=== PATIENT | male | born 1995 | race Caucasian/White ===

== ENCOUNTER 2023-07-29 16:43 | Emergency (ER) | payer OTHER ==
--- NOTE | 2023-07-29 18:22 | ED ---
General Adult HPI - General Source: patient, family Mode of arrival: ambulatory Limitations: no limitations <Patrick Wright - Last Filed: 07/29/23 18:25> - General Source: RN notes reviewed <Glenda Dorman - Last Filed: 07/30/23 00:05> - General Chief complaint: Psychiatric Symptoms Stated complaint: mental health Time Seen by Provider: 07/29/23 18:25 - History of Present Illness Initial comments: 28-year-old male presenting to the ED with a chief complaint of withdrawal. Patient states he has not had his Suboxone, Klonopin, Gabapentin, Abilify, or Staterra for the past 3 days. Now admits to anxiety. (Patrick Wright) 28-year-old with a past medical history significant for polysubstance abuse presents the emergency department with a chief complaint of medication refill. Patient reports that he was recently moved here from [place]. Reports that he was unable to fill his prescriptions before moving. He is requesting refills on Suboxone and Klonopin. He reports feeling restless and having some m ild nausea. He has not had his medication 3 days. Patient verbalized that he would like assistance with withdrawal night homicidal or suicidal ideation. Denies visual or auditory hallucinations. (Glenda Dorman) - Related Data Previous Rx's Medication Instructions Recorded clonazePAM 1 mg PO TID 3 Days #9 tab 07/29/23 Allergies Allergy/AdvReac Type Severity Reaction Status Date / Time No Known Allergies Allergy Verified 07/29/23 16:54 Review of Systems ROS Other: All systems not noted in ROS Statement are negative. <Patrick Wright - Last Filed: 07/29/23 18:25> ROS Other: All systems not noted in ROS Statement are negative. <Glenda Dorman - Last Filed: 07/30/23 00:05> ROS Statement: Those systems with pertinent positive or pertinent negative responses have been documented in the HPI. Past Medical History Additional Past Medical History / Comment(s): hep c Past Surgical History: No Surgical Hx Reported Past Psychological History: Anxiety, Bipolar, Depression, Panic Disorder Smoking Status: Current every day smoker Past Alcohol Use History: Occasional Past Drug Use History: Heroin, Opiates <Patrick Wright - Last Filed: 07/29/23 18:25> General Exam Limitations: no limitations General appearance: alert Neck exam: Present: normal inspection Extremities exam: Present: normal inspection Back exam: Present: normal inspection Neurological exam: Present: alert <Patrick Wright - Last Filed: 07/29/23 18:25> <Glenda Dorman - Last Filed: 07/30/23 00:05> - General Exam Comments Initial Comments: General: Alert, in no acute distress Head: atraumatic normocephalic. Eyes PERRL, EOMI intact, mucous membranes moist Respiratory: Lungs clear to auscultation bilaterally Cardiovascular: Heart rate regular rate and rhythm Abdominal: Soft without guarding or rebound Extremities: Normal inspection with full range of motion and normal capillary refill Neuroogic: alert and oriented 3, CN II-XII intact, able to ambulate with steady gait Skin: warm dry and intact with normal color (Glenda Dorman) Course Vital Signs 07/29/23 07/29/23 16:51 22:54 Temperature 97 F L 97.9 F Pulse Rate 63 80 Respiratory 16 18 Rate Blood Pressure 150/85 162/81 O2 Sat by Pulse 99 100 Oximetry Medical Decision Making <Patrick Wright - Last Filed: 07/29/23 18:25> <Glenda Dorman - Last Filed: 07/30/23 00:05> - Medical Decision Making Quicknote portion performed. Signed Patrick Wright PA-C (Patrick Wright) Was pt. sent in by a medical professional or institution ([facility] [employer], GLOBAL RECRUITER, urgent care, hospital, or fpc...) When possible be specific @ -[No] Did you speak to anyone other than the patient for history (EMS, parent, family, police, friend...)? What history was obtained from this source @ -Mother Did you review nursing and triage notes (agree or disagree)? Why? @ -[I reviewed and agree with nursing and triage notes] Were old charts reviewed (outside hosp., previous admission, EMS record, old EKG, old radiological studies, urgent care reports/EKG's, fpc records)? Report findings @ -[No old charts were reviewed] Differential Diagnosis (chest pain, altered mental status, abdominal pain women, abdominal pain men, vaginal bleeding, weakness, fever, dyspnea, syncope, headache, dizziness, GI bleed, back pain, seizure, CVA, palpatations, mental health, musculoskeletal)? @ -[not applicable] EKG interpreted by me (3pts min.). @ -[As above] X-rays interpreted by me (1pt min.). @ -[None done] CT interpreted by me (1pt min.). @ -[None done] U/S interpreted by me (1pt. min.). @ -[None done] What testing was considered but not performed or refused? (CT, X-rays, U/S, labs )? Why? @ -[None] What meds were considered but not given or refused? Why? @ -[None] Did you discuss the management of the patient with other professionals (professionals i.e. , PA, GLOBAL RECRUITER, lab, RT, psych nurse, social media campaign manager, moving picture producer, teacher, court collections officer, director of casework department)? Give summary @ -[No] Was smoking cessation discussed for >3mins.? @ -[No] Was critical care preformed (if so, how long)? @ -[No] Were there social determinants of health that impacted care today? How? (Homelessness, low income, unemployed, alcoholism, drug addiction, transportation, low edu. Level, literacy, decrease access to med. care, fci, rehab)? @ -[No] Was there de-escalation of care discussed even if they declined (Discuss DNR or withdrawal of care, Hospice)? DNR status @ -[No] What co-morbidities impacted this encounter? (DM, HTN, Smoking, COPD, CAD, Cancer, CVA, ARF, Chemo, Hep., AIDS, mental health diagnosis, sleep apnea, morbid obesity)? @ -[None] Was patient admitted / discharged? Hospital course, mention meds given and route, prescriptions, significant lab abnormalities, going to OR and other pert inent info. @ -Discharged. This is a 19-year-old male who presents the emergency department with medication refill. Patient had a thorough history and physical exam performed. Patient appears unkept. Vital signs are stable. Heart rate regular rate and rhythm, lungs clear to auscultation bilaterally abdomen soft and nontender. Patient given Klonopin here. Educated that provider unable to provide Suboxone. Patient given Rx for Klonopin. Recommend close follow-up with PCP. Charged in stable condition. Case discussed with Dr. Booker, P who agrees with plan of care Undiagnosed new problem with uncertain prognosis? @ -[No] Drug Therapy requiring intensive monitoring for toxicity (Heparin, Nitro, Ins ulin, Cardizem)? @ -[No] Were any procedures done? @ -[No] Diagnosis/symptom? @ -Medication Re-fill - Anxiety Acute, or Chronic, or Acute on Chronic? @ -Acute Uncomplicated (without systemic symptoms) or Complicated (systemic symptoms)? @ Uncomplicated Side effects of treatment? @ -[No] Exacerbation, Progression, or Severe Exacerbation? @ -[No] Poses a threat to life or bodily function? How? (Chest pain, [place], [place], pneumonia, PE, COPD, DKA, ARF, appy, cholecystitis, CVA, Diverticulitis, Homicidal, Suicidal, threat to staff... and all critical care pts) @ -Low likelihood (Glenda Dorman) Disposition <Patrick Wright - Last Filed: 07/29/23 18:25> Is patient prescribed a controlled substance at d/c from ED?: No Time of Disposition: 23:30 <Glenda Dorman - Last Filed: 07/30/23 00:05> Clinical Impression: Acute anxiety, Medication refill Disposition: HOME SELF-CARE Condition: Stable Additional Instructions: Take medication as prescribed Establish care with primary care physician Please return if worsening symptoms develop Prescriptions: clonazePAM 1 mg PO TID 3 Days #9 tab Referrals: None,Stated [Primary Care Provider] - 1-2 days Forms: Area PCPs
[2023-07-29] MEDS ORDERED: clonazePAM 0.5 MG TAB PO STA (23:23)
[2023-07-29 23:33] VITALS: RESP 18
[2023-07-30 00:56] VITALS: BP 164/82; PULSE 82; TEMP 98.1
== END 2023-07-30 00:07 | disposition home or self-care (01) ==
LOC: EC 16:43
DX: F41.9 Anxiety disorder, unspecified (principal); F11.90 Opioid use, unspecified, uncomplicated; Z76.0 Encounter for issue of repeat prescription
CPT/HCPCS: 99284

== ENCOUNTER 2023-08-30 13:29 | Emergency (ER) | payer OTHER ==
[2023-08-30] MEDS ORDERED: LORazepam 1 MG TAB PO STA ×2 (15:04→16:12)
[2023-08-30 15:37] LABS: Amphetamine Screen,Urine Not Detected (NotDetected); Barbiturate Screen,Urine Not Detected (NotDetected); Benzodiazepines Screen,Urine Not Detected (NotDetected); Cocaine Screen,Urine Not Detected (NotDetected); Methadone Screen, Urine Not Detected (NotDetected); Opiate Screen,Urine Not Detected (NotDetected); Oxycodone Screen, Urine Not Detected (NotDetected); Phencyclidine Screen,Urine Not Detected (NotDetected); Tricyclic Antidepressant,Urine Not Detected (NotDetected); Urn Cannabinoid Scrn Not Detected (NotDetected)
[2023-08-30 16:01] VITALS: BP 121/82; PULSE 76; RESP 18; TEMP 97.8
--- NOTE | 2023-08-30 16:06 | ED ---
General Adult HPI - General Chief complaint: Psychiatric Symptoms Stated complaint: mental health Time Seen by Provider: 08/30/23 14:34 Source: patient, RN notes reviewed, old records reviewed Mode of arrival: ambulatory Limitations: no limitations - History of Present Illness Initial comments: Patient is a 28-year-old male who presents from [facility] to emergency Department complaining of increased anxiety and nonspecific suicidal ideations. Currently denying suicidal ideations. States [facility] recommended he come to the emergency department for evaluation. Denies homicidal ideations, attempts, plans. Denies any current suicidal ideations, attempts complaints. Denies any visual or auditory hallucinations. No other acute complaints at this time. Klonopin 1 mg twice a day however patient has been off of that as he ran out of his prescriptions. - Related Data Previous Rx's Medication Instructions Recorded clonazePAM 1 mg PO TID 3 Days #9 tab 07/29/23 clonazePAM [KlonoPIN] 1 mg PO BID 3 Days #6 tablet 08/30/23 Allergies Allergy/AdvReac Type Severity Reaction Status Date / Time No Known Allergies Allergy Verified 08/30/23 14:28 Review of Systems ROS Statement: Those systems with pertinent positive or pertinent negative responses have been documented in the HPI. Review of Systems: CONST: Denies fever EYES: Denies blurry vision ENT: Denies nasal congestion C/V: Denies Chest pain RESP: Denies shortness of breath GI: Denies abdominal pain : Denies dysuria SKIN: Denies rash. MSK: Denies joint pain. NEURO: Denies headache ROS Other: All systems not noted in ROS Statement are negative. Past Medical History Additional Past Medical History / Comment(s): hep c Past Surgical History: No Surgical Hx Reported Past Psychological History: Anxiety, Bipolar, Depression, Panic Disorder Smoking Status: Current every day smoker Past Alcohol Use History: Occasional Past Drug Use History: Heroin, Opiates General Exam - General Exam Comments Initial Comments: General: Appears in no acute distress. HEAD: Normal with no signs of head trauma. EYES: PERRLA, EOMI, ENT: Hearing grossly intact, normal oropharynx. RESPIRATORY: Clear breath sounds bilaterally. No wheezes, rales, or rhonchi. C/V: Regular rate and rhythm. S1 and S2 auscultated,peripheral pulses 2+ and intact throughout ABD: Abd is soft, nontender, nondistended EXT: Normal range of motion, no obvious deformity SKIN: No rashes or lesions observed on exposed skin. NEURO: Alert and oriented x 4. Limitations: no limitations Course Vital Signs 08/30/23 08/30/23 14:25 15:52 Temperature 97.9 F 97.8 F Pulse Rate 83 76 Respiratory 16 18 Rate Blood Pressure 138/93 121/82 O2 Sat by Pulse 97 98 Oximetry Medical Decision Making - Medical Decision Making Was pt. sent in by a medical professional or institution (, PA, TELECOM MANAGER, urgent care, hospital, or care home...) When possible be specific @ -No Did you speak to anyone other than the patient for history (EMS, parent, family, police, friend...)? What history was obtained from this source @ -No Did you review nursing and triage notes (agree or disagree)? Why? @ -I reviewed and agree with nursing and triage notes Were old charts reviewed (outside hosp., previous admission, EMS record, old EKG, old radiological studies, urgent care reports/EKG's, care home records)? Report findings @ -Old charts reviewed Differential Diagnosis (chest pain, altered mental status, abdominal pain women, abdominal pain men, vaginal bleeding, weakness, fever, dyspnea, syncope, headache, dizziness, GI bleed, back pain, seizure, CVA, palpatations, mental health, musculoskeletal)? @ -Differential Mental Health Depression, anxiety, bipolar, psychosis, schizophrenia, borderline personality, situational depression, adjustment disorder, behavioral disorder, brain tumor, malingering, substance abuse, encephalopathy, medication reaction, dementia, hypothyroidism, degenerative neurologic disorder, lupus.... This is not meant to be all-inclusive list EKG interpreted by me (3pts min.). @ -None done X-rays interpreted by me (1pt min.). @ -None done CT interpreted by me (1pt min.). @ -None done U/S interpreted by me (1pt. min.). @ -None done What testing was considered but not performed or refused? (CT, X-rays, U/S, labs)? Why? @ -None What meds were considered but not given or refused? Why? @ -None Did you discuss the management of the patient with other professionals (professionals i.e. , NANNETTE, TELECOM MANAGER, lab, RT, psych nurse, medical social consultant, contract recruiter, teacher, defence force senior officer, shoe caser)? Give summary @ -EPS notified of the consult. They evaluated the patient and the patient is stable for discharge. I believe this is reasonable. Patient will follow up with [facility]. Was smoking cessation discussed for >3mins.? @ -No Was critical care preformed (if so, how long)? @ -No Were there social determinants of health that impacted care today? How? (Homelessness, low income, unemployed, alcoholism, drug addiction, transportation, low edu. Level, literacy, decrease access to med. care, custodial, rehab)? @ -No Was there de-escalation of care discussed even if they declined (Discuss DNR or withdrawal of care, Hospice)? DNR status @ -No What co-morbidities impacted this encounter? (DM, HTN, Smoking, COPD, CAD, Cancer, CVA, ARF, Chemo, Hep., AIDS, mental health diagnosis, sleep apnea, morbid obesity)? @ -None Was patient admitted / discharged? Hospital course, mention meds given and route, prescriptions, significant lab abnormalities, going to OR and other pertinent info. @ -Based on patient's presentation physical exam, presents for mental health evaluation. Is also asking for refill on his Klonopin prescription. Has been without it for multiple beats. Endorses intermittent suicidal ideations but currently is having none. Also endorses anxiety. Patient was placed in agreement scrubs. UDS is pending. BAT is 0. Vital signs within accepted limits. Appears anxious and he will be given a dose of Ativan. Patient is medically cleared for evaluation by psychiatry. Disposition pending psychiatric evaluation. EPS notified of the consult. EPS evaluated the patient and after discussion with psychiatry determined he does meet criteria for discharge home. Is not meet inpatient psychiatric criteria. I believe this is reasonable. He'll be discharged home with a 3 day prescription of his normal Klonopin medication. He has outpatient follow-up with [facility]. I will provide the patient with a prescription for 3 days of Klonopin. I instructed the patient to follow up with their PCP in the next 1-3 days. I explained that the patient should return to the emergency department if they experience any worsening symptoms. Strict return precautions were discussed with the patient. The patient expressed understanding of these instructions. I answered all questions that the patient had. The patient was discharged home in good condition with their prescriptions and follow up information. Undiagnosed new problem with uncertain prognosis? @ -No Drug Therapy requiring intensive monitoring for toxicity (Heparin, Nitro, Insulin, Cardizem)? @ -No Were any procedures done? @ -No Diagnosis/symptom? @ -Anxiety, encounter for psychiatric evaluation Acute, or Chronic, or Acute on Chronic? @ -Acute Uncomplicated (without systemic symptoms) or Complicated (systemic symptoms)? @ -Uncomplicated Side effects of treatment? @ -No Exacerbation, Progression, or Severe Exacerbation? @ -No Poses a threat to life or bodily function? How? (Chest pain, [place], [place], pneumonia, PE, COPD, DKA, ARF, appy, cholecystitis, CVA, Diverticulitis, Homicidal, Suicidal, threat to staff... and all critical care pts) @ -No - Lab Data Lab Results 08/30/23 Range/Units 15:14 Urine Opiates Screen Not Detected (NotDetected) Ur Oxycodone Screen Not Detected (NotDetected) Urine Methadone Screen Not Detected (NotDetected) Ur Barbiturates Screen Not Detected (NotDetected) U Tricyclic Antidepress Not Detected (NotDetected) Ur Phencyclidine Scrn Not Detected (NotDetected) Ur Amphetamines Screen Not Detected (NotDetected) U Methamphetamines Scrn Not Detected (NotDetected) U Benzodiazepines Scrn Not Detected (NotDetected) Urine Cocaine Screen Not Detected (NotDetected) U Marijuana (THC) Screen Not Detected (NotDetected) Disposition Clinical Impression: Acute anxiety Disposition: HOME SELF-CARE Condition: Good Prescriptions: clonazePAM [KlonoPIN] 1 mg PO BID 3 Days #6 tablet Is patient prescribed a controlled substance at d/c from ED?: Yes When asked, does pt state using other controlled substances?: No If prescribed controlled substance>3 days was MAPS reviewed?: Prescribed <3 Days Referrals: None,Stated [Primary Care Provider] - 1-2 days Time of Disposition: 16:00
== END 2023-08-30 16:17 | disposition home or self-care (01) ==
LOC: EC 13:29
DX: F41.9 Anxiety disorder, unspecified (principal); F17.200 Nicotine dependence, unspecified, uncomplicated; F15.90 Other stimulant use, unspecified, uncomplicated; F11.90 Opioid use, unspecified, uncomplicated
CPT/HCPCS: 80306; 82075; 99285

== ENCOUNTER 2023-09-02 17:23 | Emergency (ER) | payer OTHER ==
[2023-09-02] MEDS ORDERED: LORazepam 1 MG TAB PO STA (20:12)
--- NOTE | 2023-09-02 20:17 | ED ---
Psych HPI - General Chief Complaint: Psychiatric Symptoms Stated Complaint: Mental Health Time Seen by Provider: 09/02/23 18:02 Source: patient, RN notes reviewed, old records reviewed Mode of arrival: ambulatory Limitations: no limitations - History of Present Illness Initial Comments: This is a 28-year-old male to the emergency department for evaluation today. Patient presents today for evaluation regards to psychiatric illness. Patient states is out of his medication currently homeless his been running out of his medications with multiple recent ER visits for similar complaints. It to stress of Situation is really stressing him out causing significant anxiety MD Complaint: feels depressed, altered mental status -: days(s) Associated Psychiatric Symptoms: depression, suicidal ideation History of same: Yes Quality: constant Improves With: none Context: not taking psychiatric medications, significant life stressor Associated Symptoms: denies other symptoms Treatments Prior to Arrival: placed on mental health hold If Self Harm: admits thoughts of self harm - Related Data Previous Rx's Medication Instructions Recorded clonazePAM [KlonoPIN] 1 mg PO TID 3 Days #9 tab 09/10/23 Allergies Allergy/AdvReac Type Severity Reaction Status Date / Time No Known Allergies Allergy Verified 09/10/23 20:11 Review of Systems ROS Statement: Those systems with pertinent positive or pertinent negative responses have been documented in the HPI. ROS Other: All systems not noted in ROS Statement are negative. Past Medical History Additional Past Medical History / Comment(s): hep c Past Surgical History: No Surgical Hx Reported Past Psychological History: Anxiety, Bipolar, Depression, Panic Disorder Smoking Status: Current every day smoker Past Alcohol Use History: Occasional Past Drug Use History: Heroin, Opiates General Exam Limitations: no limitations General appearance: alert, in no apparent distress Head exam: Present: atraumatic, normocephalic, normal inspection Eye exam: Present: normal appearance, PERRL, EOMI. Absent: scleral icterus, conjunctival injection, periorbital swelling ENT exam: Present: normal exam, mucous membranes moist Neck exam: Present: normal inspection. Absent: tenderness, meningismus, lymphadenopathy Respiratory exam: Present: normal lung sounds bilaterally. Absent: respiratory distress, wheezes, rales, rhonchi, stridor Cardiovascular Exam: Present: regular rate, normal rhythm, normal heart sounds. Absent: systolic murmur, diastolic murmur, rubs, gallop, clicks GI/Abdominal exam: Present: soft, normal bowel sounds. Absent: distended, tenderness, guarding, rebound, rigid Extremities exam: Present: normal inspection, full ROM, normal capillary refill. Absent: tenderness, pedal edema, joint swelling, calf tenderness Back exam: Present: normal inspection Neurological exam: Present: alert, oriented X3, CN II-XII intact Psychiatric exam: Present: normal affect, normal mood Skin exam: Present: warm, dry, intact, normal color. Absent: rash Course Vital Signs 09/02/23 09/02/23 17:44 20:34 Temperature 98.5 F 97.5 F L Pulse Rate 100 93 Respiratory 20 18 Rate Blood Pressure 136/92 119/81 O2 Sat by Pulse 98 100 Oximetry - Reevaluation(s) Reevaluation #1: Medical record is reviewed Reevaluation #2: Medical clear for psychiatric evaluation Medical Decision Making - Medical Decision Making 28 male to the Er for evaluation. Patient presents today for evaluation psychiatric illness and patient will be discharged home Disposition Clinical Impression: Acute anxiety, Adjustment reaction of adult life, Depression Disposition: HOME SELF-CARE Condition: Good Instructions (If sedation given, give patient instructions): Anxiety (ED) Is patient prescribed a controlled substance at d/c from ED?: No Referrals: None,Stated [Primary Care Provider] - 1-2 days
[2023-09-02 20:46] VITALS: BP 119/81; PULSE 93; RESP 18; TEMP 97.5
== END 2023-09-02 20:38 | disposition home or self-care (01) ==
LOC: EC 17:23
DX: F43.23 Adjustment disorder with mixed anxiety and depressed mood (principal); F17.200 Nicotine dependence, unspecified, uncomplicated; F11.90 Opioid use, unspecified, uncomplicated; Z59.00 Homelessness unspecified
CPT/HCPCS: 82075; 99284

== ENCOUNTER 2023-09-10 15:34 | Emergency (ER) | payer OTHER ==
--- NOTE | 2023-09-10 16:53 | ED ---
Psych HPI - General Chief Complaint: Psychiatric Symptoms Stated Complaint: mental health Time Seen by Provider: 09/10/23 16:52 Source: patient, RN notes reviewed, old records reviewed Mode of arrival: ambulatory Limitations: no limitations - History of Present Illness Initial Comments: This is a 28-year-old male for evaluation today. Patient presents to the ER today for evaluation of psychiatric illness. Patient is significantly anxious here in the ER and states that he needs his medication. Admits significant and persistent anxiety, patient's anxiety causes him worsening anxiety does need his medication and is currently homeless with multiple recent ER visits for similar symptoms MD Complaint: feels depressed, altered mental status, other (Severe anxiety) -: unknown Associated Psychiatric Symptoms: none History of same: Yes Quality: constant Improves With: none Worsens With: none Treatments Prior to Arrival: placed on mental health hold If Self Harm: admits thoughts of self harm - Related Data Previous Rx's Medication Instructions Recorded clonazePAM [KlonoPIN] 1 mg PO TID 3 Days #9 tab 09/10/23 Allergies Allergy/AdvReac Type Severity Reaction Status Date / Time No Known Allergies Allergy Verified 09/10/23 20:11 Review of Systems ROS Statement: Those systems with pertinent positive or pertinent negative responses have been documented in the HPI. ROS Other: All systems not noted in ROS Statement are negative. Past Medical History Additional Past Medical History / Comment(s): hep c Past Surgical History: No Surgical Hx Reported Past Psychological History: Anxiety, Bipolar, Depression, Panic Disorder Smoking Status: Current every day smoker Past Alcohol Use History: Occasional Past Drug Use History: Heroin, Opiates General Exam Limitations: no limitations General appearance: alert, in no apparent distress Head exam: Present: atraumatic, normocephalic, normal inspection Eye exam: Present: normal appearance, PERRL, EOMI. Absent: scleral icterus, conjunctival injection, periorbital swelling ENT exam: Present: normal exam, mucous membranes moist Neck exam: Present: normal inspection. Absent: tenderness, meningismus, lymphadenopathy Respiratory exam: Present: normal lung sounds bilaterally. Absent: respiratory distress, wheezes, rales, rhonchi, stridor Cardiovascular Exam: Present: regular rate, normal rhythm, normal heart sounds. Absent: systolic murmur, diastolic murmur, rubs, gallop, clicks GI/Abdominal exam: Present: soft, normal bowel sounds. Absent: distended, tenderness, guarding, rebound, rigid Extremities exam: Present: normal inspection, full ROM, normal capillary refill. Absent: tenderness, pedal edema, joint swelling, calf tenderness Back exam: Present: normal inspection Neurological exam: Present: alert, oriented X3, CN II-XII intact Psychiatric exam: Present: normal affect, normal mood Skin exam: Present: warm, dry, intact, normal color. Absent: rash Course Vital Signs 09/10/23 09/10/23 09/10/23 15:45 17:22 20:39 Temperature 98.7 F 98.1 F Pulse Rate 81 86 88 Respiratory 18 20 16 Rate Blood Pressure 133/82 132/62 131/60 O2 Sat by Pulse 99 98 97 Oximetry - Reevaluation(s) Reevaluation #1: Medical record is reviewed Reevaluation #2: Patient symptoms improved in the emergency department Medical Decision Making - Medical Decision Making 28 male to the emergency department for evaluation of acute psychosis severe anxiety secondary to being off all medications. Patient is not homicidal currently. Not suicidal currently and can be discharged home - Lab Data Lab Results 09/10/23 Range/Units 19:12 Urine Opiates Screen Not Detected (NotDetected) Ur Oxycodone Screen Not Detected (NotDetected) Urine Methadone Screen Not Detected (NotDetected) Ur Barbiturates Screen Not Detected (NotDetected) U Tricyclic Antidepress Not Detected (NotDetected) Ur Phencyclidine Scrn Not Detected (NotDetected) Ur Amphetamines Screen Not Detected (NotDetected) U Methamphetamines Scrn Not Detected (NotDetected) U Benzodiazepines Scrn Not Detected (NotDetected) Urine Cocaine Screen Not Detected (NotDetected) U Marijuana (THC) Screen Not Detected (NotDetected) Disposition Clinical Impression: Acute anxiety, Adjustment reaction of adult life, Depression Disposition: HOME SELF-CARE Condition: Fair Instructions (If sedation given, give patient instructions): Anxiety (ED) Prescriptions: clonazePAM [KlonoPIN] 1 mg PO TID 3 Days #9 tab Is patient prescribed a controlled substance at d/c from ED?: No Referrals: Hu Freeman MD [Primary Care Provider] - 1-2 days Time of Disposition: 20:30
[2023-09-10 20:04] LABS: Amphetamine Screen,Urine Not Detected (NotDetected); Cocaine Screen,Urine Not Detected (NotDetected); Opiate Screen,Urine Not Detected (NotDetected); Phencyclidine Screen,Urine Not Detected (NotDetected); Urn Cannabinoid Scrn Not Detected (NotDetected)
[2023-09-10 20:05] LABS: Barbiturate Screen,Urine Not Detected (NotDetected); Benzodiazepines Screen,Urine Not Detected (NotDetected); Methadone Screen, Urine Not Detected (NotDetected); Oxycodone Screen, Urine Not Detected (NotDetected); Tricyclic Antidepressant,Urine Not Detected (NotDetected)
[2023-09-10] MEDS ORDERED: diazePAM 5 MG TAB PO STA (20:26)
[2023-09-10] MEDS ORDERED: clonazePAM 0.5 MG TAB PO STA (20:26)
[2023-09-10 20:51] VITALS: BP 131/60; PULSE 88; RESP 16; TEMP 98.1
== END 2023-09-10 20:41 | disposition home or self-care (01) ==
LOC: EC 15:34
DX: F43.22 Adjustment disorder with anxiety (principal); F32.A Depression, unspecified; F17.200 Nicotine dependence, unspecified, uncomplicated; Z86.59 Personal history of other mental and behavioral disorders
CPT/HCPCS: 80306; 82075; 99285

== ENCOUNTER 2023-09-18 15:41 | Emergency (ER) | payer OTHER ==
[2023-09-18 15:59] VITALS: RESP 16; TEMP 98.7
[2023-09-18] MEDS ORDERED: LORazepam 1 MG TAB PO STA (16:32)
--- NOTE | 2023-09-18 16:32 | ED ---
General Adult HPI - General Chief complaint: Anxiety Stated complaint: Anxiety Time Seen by Provider: 09/18/23 15:56 Source: EMS, RN notes reviewed Mode of arrival: EMS Limitations: no limitations - History of Present Illness Initial comments: 28-year-old male presents to the emergency department for evaluation of anxiety attack. Patient does report a history of anxiety and panic disorder. The symptoms of his panic attack today by the same as they typically are including racing thoughts. He states that he typically takes his Klonopin which helps his symptoms but he recently ran out. He states that he has an appointment on 09-21-2023 with [facility]. He states that he is currently not on his other medications for his mental health. He states that he has been off these for 3 months. He is not suicidal or homicidal at this time. Patient has been to the emergency department multiple times for this same thing in hopes of getting his Klonopin refilled. - Related Data Previous Rx's Medication Instructions Recorded clonazePAM [KlonoPIN] 1 mg PO TID 3 Days #9 tab 09/10/23 busPIRone HCl [Buspar] 10 mg PO BID #14 tab 09/18/23 Allergies Allergy/AdvReac Type Severity Reaction Status Date / Time No Known Allergies Allergy Verified 09/18/23 15:55 Review of Systems ROS Statement: Those systems with pertinent positive or pertinent negative responses have been documented in the HPI. ROS Other: All systems not noted in ROS Statement are negative. Past Medical History Additional Past Medical History / Comment(s): hep c Past Surgical History: No Surgical Hx Reported Past Psychological History: Anxiety, Bipolar, Depression, Panic Disorder Smoking Status: Current every day smoker Past Alcohol Use History: Occasional Past Drug Use History: Heroin, Opiates General Exam Limitations: no limitations General appearance: alert, in no apparent distress Head exam: Present: atraumatic, normocephalic, normal inspection Eye exam: Present: normal appearance, PERRL, EOMI. Absent: scleral icterus, conjunctival injection, periorbital swelling Respiratory exam: Present: normal lung sounds bilaterally. Absent: respiratory distress, wheezes, rales, rhonchi, stridor Cardiovascular Exam: Present: regular rate, normal rhythm, normal heart sounds. Absent: systolic murmur, diastolic murmur, rubs, gallop, clicks GI/Abdominal exam: Present: soft, normal bowel sounds. Absent: distended, tenderness, guarding, rebound, rigid Extremities exam: Present: normal inspection, full ROM, normal capillary refill. Absent: tenderness, pedal edema, joint swelling, calf tenderness Back exam: Present: normal inspection Neurological exam: Present: alert, oriented X3 Psychiatric exam: Present: agitated Skin exam: Present: warm, dry, intact, normal color. Absent: rash Course Vital Signs 09/18/23 09/18/23 15:51 17:09 Temperature 98.7 F 98.7 F Pulse Rate 73 79 Respiratory 16 16 Rate Blood Pressure 125/80 122/74 O2 Sat by Pulse 99 98 Oximetry Medical Decision Making - Medical Decision Making Was pt. sent in by a medical professional or institution (, PA, FOOD SERVICE, urgent care, hospital, or assisted...) When possible be specific @ -No Did you speak to anyone other than the patient for history (EMS, parent, family, police, friend...)? What history was obtained from this source @ -No Did you review nursing and triage notes (agree or disagree)? Why? @ -I reviewed and agree with nursing and triage notes Were old charts reviewed (outside hosp., previous admission, EMS record, old EKG, old radiological studies, urgent care reports/EKG's, assisted records)? Report findings @ -No old charts were reviewed Differential Diagnosis (chest pain, altered mental status, abdominal pain women, abdominal pain men, vaginal bleeding, weakness, fever, dyspnea, syncope, headache, dizziness, GI bleed, back pain, seizure, CVA, palpatations, mental health, musculoskeletal)? @ -Differential Mental Health Depression, anxiety, bipolar, psychosis, schizophrenia, borderline personality, situational depression, adjustment disorder, behavioral disorder, brain tumor, malingering, substance abuse, encephalopathy, medication reaction, dementia, hypothyroidism, degenerative neurologic disorder, lupus.... This is not meant to be all-inclusive list EKG interpreted by me (3pts min.). @ -None X-rays interpreted by me (1pt min.). @ -None done CT interpreted by me (1pt min.). @ -None done U/S interpreted by me (1pt. min.). @ -None done What testing was considered but not performed or refused? (CT, X-rays, U/S, labs)? Why? @ -None What meds were considered but not given or refused? Why? @ -Prescription for Klonopin was considered, patient has come to the emergency department multiple times for Klonopin refills. Discussed with patient that he needs to follow-up with [facility] for further refills. Did you discuss the management of the patient with other professionals (professionals i.e. Dr., PA, FOOD SERVICE, lab, RT, psych nurse, group social worker, numerologist, teacher, code enforcement officer, child support case officer)? Give summary @ -No Was smoking cessation discussed for >3mins.? @ -No Was critical care preformed (if so, how long)? @ -No Were there social determinants of health that impacted care today? How? (Homelessness, low income, unemployed, alcoholism, drug addiction, transportation, low edu. Level, literacy, decrease access to med. care, senior care, rehab)? @ -Homelessness Was there de-escalation of care discussed even if they declined (Discuss DNR or withdrawal of care, Hospice)? DNR status @ -No What co-morbidities impacted this encounter? (DM, HTN, Smoking, COPD, CAD, Cancer, CVA, ARF, Chemo, Hep., AIDS, mental health diagnosis, sleep apnea, morbid obesity)? @ -None Was patient admitted / discharged? Hospital course, mention meds given and route, prescriptions, significant lab abnormalities, going to OR and other pertinent info. @ -Discharged. Patient presented to the emergency department for evaluation of anxiety attacks. He has been to the emergency department multiple times for this recently and hopes that he can get his Klonopin refilled. Discussed with patient that he could be given a dose of medication while in the emergency department but prescription benzos will not be sent and he needs to follow-up with [facility]. Prescription sent to patient's pharmacy for BuSpar for in the meantime. Patient understanding agreeable with plan. Patient stable at time of discharge. Case discussed with Dr. Mcintyre Undiagnosed new problem with uncertain prognosis? @ -No Drug Therapy requiring intensive monitoring for toxicity (Heparin, Nitro, Insulin, Cardizem)? @ -No Were any procedures done? @ -No Diagnosis/symptom? @ -Anxiety Acute, or Chronic, or Acute on Chronic? @ -Acute on chronic Uncomplicated (without systemic symptoms) or Complicated (systemic symptoms)? @ -Uncomplicated Side effects of treatment? @ -No Exacerbation, Progression, or Severe Exacerbation? @ -No Poses a threat to life or bodily function? How? (Chest pain, [place], [place], pneumonia, PE, COPD, DKA, ARF, appy, cholecystitis, CVA, Diverticulitis, Homicidal, Suicidal, threat to staff... and all critical care pts) @ -No Disposition Clinical Impression: Acute anxiety Disposition: HOME SELF-CARE Condition: Stable Instructions (If sedation given, give patient instructions): Generalized Anxiety Disorder (ED) Additional Instructions: Please follow up with [facility] as scheduled. Return to the emergency department for new or worsening symptoms. Prescriptions: busPIRone HCl [Buspar] 10 mg PO BID #14 tab Is patient prescribed a controlled substance at d/c from ED?: No Referrals: Hu Freeman MD [Primary Care Provider] - 1-2 days
[2023-09-18 17:33] VITALS: BP 122/74; PULSE 79
== END 2023-09-18 17:20 | disposition home or self-care (01) ==
LOC: EC 15:41
DX: F41.9 Anxiety disorder, unspecified (principal); F17.200 Nicotine dependence, unspecified, uncomplicated; F11.90 Opioid use, unspecified, uncomplicated; F15.90 Other stimulant use, unspecified, uncomplicated
CPT/HCPCS: 99283

== ENCOUNTER 2023-10-02 10:11 | Inpatient (IN) | payer OTHER ==
--- NOTE | 2023-10-02 10:25 | ED ---
Psych HPI - General Chief Complaint: Psychiatric Symptoms Stated Complaint: Suicidal Ideations Time Seen by Provider: 10/02/23 10:12 Source: patient, RN notes reviewed, old records reviewed Mode of arrival: ambulatory Limitations: no limitations - History of Present Illness Initial Comments: 28-year-old male presents emergency department with chief complaint of depression, states ideation. Patient has a history of bipolar disorder states he is not on all of his medications he is awaiting his appointment with psychiatrist. Patient states he has been seen here several times recently for similar complaints. Patient states he does have severe anxiety. He does admit that 3 days ago he attempted overdose on heroin he states his inversum is used in 3 years he states he is supposed to be on Suboxone. He denies any current complaints denies alcohol abuse. Denies being homicidal - Related Data Home Medications Medication Instructions Recorded Confirmed ARIPiprazole [Abilify] 10 mg PO DAILY 10/02/23 10/02/23 Atomoxetine HCl [Strattera] 25 mg PO DAILY 10/02/23 10/02/23 OXcarbazepine [Trileptal] 300 mg PO BID 10/02/23 10/02/23 Allergies Allergy/AdvReac Type Severity Reaction Status Date / Time No Known Allergies Allergy Verified 10/02/23 12:15 Review of Systems ROS Statement: Those systems with pertinent positive or pertinent negative responses have been documented in the HPI. ROS Other: All systems not noted in ROS Statement are negative. Past Medical History Additional Past Medical History / Comment(s): hep c Past Surgical History: No Surgical Hx Reported Past Psychological History: Anxiety, Bipolar, Depression, Panic Disorder Smoking Status: Current every day smoker Past Alcohol Use History: Occasional Past Drug Use History: Heroin, Opiates General Exam Limitations: no limitations General appearance: alert, in no apparent distress Head exam: Present: atraumatic, normocephalic, normal inspection Eye exam: Present: normal appearance, PERRL, EOMI. Absent: scleral icterus, conjunctival injection, periorbital swelling ENT exam: Present: mucous membranes moist Neck exam: Present: normal inspection, full ROM. Absent: tenderness, meningismus, lymphadenopathy Respiratory exam: Present: normal lung sounds bilaterally. Absent: respiratory distress, wheezes, rales, rhonchi, stridor Cardiovascular Exam: Present: regular rate, normal rhythm, normal heart sounds. Absent: systolic murmur, diastolic murmur, rubs, gallop, clicks Neurological exam: Present: alert, oriented X3 Psychiatric exam: Present: depressed Skin exam: Present: warm, dry, intact, normal color. Absent: rash Course Vital Signs 10/02/23 10/02/23 10/02/23 10:14 10:49 14:47 Temperature 98.1 F Pulse Rate 111 H 100 100 Respiratory 20 20 20 Rate Blood Pressure 131/85 133/68 136/80 O2 Sat by Pulse 99 98 98 Oximetry Medical Decision Making - Medical Decision Making Was pt. sent in by a medical professional or institution (, PA, RAILWAY PATROL OFFICER, urgent care, hospital, or detention...) When possible be specific @ -No Did you speak to anyone other than the patient for history (EMS, parent, family, police, friend...)? What history was obtained from this source @ -No Did you review nursing and triage notes (agree or disagree)? Why? @ -I reviewed and agree with nursing and triage notes Were old charts reviewed (outside hosp., previous admission, EMS record, old EKG, old radiological studies, urgent care reports/EKG's, detention records)? Report findings @ -[Reviewed recent evaluation Differential Diagnosis (chest pain, altered mental status, abdominal pain women, abdominal pain men, vaginal bleeding, weakness, fever, dyspnea, syncope, headache, dizziness, GI bleed, back pain, seizure, CVA, palpatations, mental health, musculoskeletal)? @ -Differential Mental Health Depression, anxiety, bipolar, psychosis, schizophrenia, borderline personality, situational depression, adjustment disorder, behavioral disorder, brain tumor, malingering, substance abuse, encephalopathy, medication reaction, dementia, hypothyroidism, degenerative neurologic disorder, lupus.... This is not meant to be all-inclusive list EKG interpreted by me (3pts min.). @ -[None X-rays interpreted by me (1pt min.). @ -[None done CT interpreted by me (1pt min.). @ -None done U/S interpreted by me (1pt. min.). @ -None done What testing was considered but not performed or refused? (CT, X-rays, U/S, labs)? Why? @ -None What meds were considered but not given or refused? Why? @ -None Did you discuss the management of the patient with other professionals (professionals i.e. , PA, RAILWAY PATROL OFFICER, lab, RT, psych nurse, social insurance adviser, stevedore hold, teacher, customs patrol officer, rifle case repairer)? Give summary @ -[EPS evaluated patient recommended inpatient treatment Was smoking cessation discussed for >3mins.? @ -No Was critical care preformed (if so, how long)? @ -No Were there social determinants of health that impacted care today? How? (Homelessness, low income, unemployed, alcoholism, drug addiction, transportation, low edu. Level, literacy, decrease access to med. care, retirement, rehab)? @ -No Was there de-escalation of care discussed even if they declined (Discuss DNR or withdrawal of care, Hospice)? DNR status @ -No What co-morbidities impacted this encounter? (DM, HTN, Smoking, COPD, CAD, Cancer, CVA, ARF, Chemo, Hep., AIDS, mental health diagnosis, sleep apnea, morbid obesity)? @ -Bipolar disorder Was patient admitted / discharged? Hospital course, mention meds given and route, prescriptions, significant lab abnormalities, going to OR and other pertinent info. @ -[To [facility] for psychiatric treatment Undiagnosed new problem with uncertain prognosis? @ -No Drug Therapy requiring intensive monitoring for toxicity (Heparin, Nitro, Insulin, Cardizem)? @ -No Were any procedures done? @ -No Diagnosis/symptom? @ -[Depression, suicide ideation Acute, or Chronic, or Acute on Chronic? @ -Acute Uncomplicated (without systemic symptoms) or Complicated (systemic symptoms)? @ -[Complicated Side effects of treatment? @ -[No Exacerbation, Progression, or Severe Exacerbation? @ -No Poses a threat to life or bodily function? How? (Chest pain, [place], [place], pneumonia, PE, COPD, DKA, ARF, appy, cholecystitis, CVA, Diverticulitis, Homicidal, Suicidal, threat to staff... and all critical care pts) @ -[Yes patient with suicidal - Lab Data Lab Results 10/02/23 10/02/23 Range/Units 10:23 10:23 Urine Opiates Screen Not Detected (NotDetected) Ur Oxycodone Screen Not Detected (NotDetected) Urine Methadone Screen Not Detected (NotDetected) Ur Barbiturates Screen Not Detected (NotDetected) U Tricyclic Antidepress Not Detected (NotDetected) Ur Phencyclidine Scrn Not Detected (NotDetected) Ur Amphetamines Screen Not Detected (NotDetected) U Methamphetamines Scrn Not Detected (NotDetected) U Benzodiazepines Scrn Not Detected (NotDetected) Urine Cocaine Screen Not Detected (NotDetected) U Marijuana (THC) Screen Detected H (NotDetected) SARS-CoV-2 (PCR) Not Detected (Not Detectd) Disposition Clinical Impression: Depression, Suicidal ideation Disposition: TRANSFER TO PSYCH HOSP/UNIT Time of Disposition: 12:41
[2023-10-02 11:31] LABS: Amphetamine Screen,Urine Not Detected (NotDetected); Barbiturate Screen,Urine Not Detected (NotDetected); Benzodiazepines Screen,Urine Not Detected (NotDetected); Cocaine Screen,Urine Not Detected (NotDetected); Methadone Screen, Urine Not Detected (NotDetected); Opiate Screen,Urine Not Detected (NotDetected); Oxycodone Screen, Urine Not Detected (NotDetected); Phencyclidine Screen,Urine Not Detected (NotDetected); Tricyclic Antidepressant,Urine Not Detected (NotDetected); Urn Cannabinoid Scrn Detected (NotDetected)
[2023-10-02] MEDS: diphenhydrAMINE 50 MG CAP PO STA (12:59)
[2023-10-02] MEDS ORDERED: hydrOXYzine HCL 50 MG/ML 1 ML VIAL IM PRN (14:25)
[2023-10-02] MEDS ORDERED: MAGNESIUM HYDROXIDE 2,400 MG/30 ML CUP PO PRN (14:25)
[2023-10-02] MEDS ORDERED: MAG HYDROX/AL HYDROX/SIMETH 30 ML CUP PO PRN (14:25)
[2023-10-02] MEDS: NICOTINE 14MG/24HR PATCH TRANSDERM SCH (15:25)
[2023-10-02] MEDS: IBUPROFEN 600 MG TAB PO PRN (18:57)
[2023-10-02] MEDS ORDERED: cloNIDine HCL 0.1 MG TAB PO PRN (20:14)
[2023-10-02] MEDS: traZODone HCL 50 MG TAB PO PRN (20:30)
[2023-10-02] MEDS ORDERED: cloNIDine HCL 0.1 MG TAB PO SCH (21:00)
[2023-10-03 12:50] LABS: Basophils # (A) 0.1 k/uL (0-0.2); Basophils % (A) 1 %; Eosinophils # (A) 0.4 k/uL (0-0.7); Eosinophils % (A) 4 %; HCT 43.6 % (39.0-53.0); HGB 13.9 gm/dL (13.0-17.5); Lymphocytes # (A) 1.6 k/uL (1.0-4.8); Lymphocytes % (A) 17 %; MCH 28.1 pg (25.0-35.0); MCHC 31.9 g/dL (31.0-37.0); MCV 88.1 fL (80.0-100.0); Mean Platelet Volume 7.7; Monocytes # (A) 0.5 k/uL (0-1.0); Monocytes % (A) 5 %; Neutrophils # (A) 6.6 k/uL (1.3-7.7); Neutrophils % (A) 72 %; Platelet Count 314 k/uL (150-450); RBC 4.95 m/uL (4.30-5.90); RDW 14.8 % (11.5-15.5); WBC 9.2 k/uL (3.8-10.6)
[2023-10-03 13:04] LABS: ALT 57 U/L (4-49); AST 34 U/L (17-59); African American GFR (CKD) >90 (>60 ml/min/1.73 sqM); Albumin 4.2 g/dL (3.5-5.0); Alkaline Phosphatase 104 U/L (38-126); Anion Gap 5 mmol/L; Blood Urea Nitrogen 11 mg/dL (9-20); Calcium 9.6 mg/dL (8.4-10.2); Carbon Dioxide 28 mmol/L (22-30); Chloride 105 mmol/L (98-107); Glucose 120 mg/dL (74-99); Non-African American GFR(CKD) >90 (>60 ml/min/1.73 sqM); Potassium 5.9 mmol/L (3.5-5.1); Sodium 138 mmol/L (137-145); Total Bilirubin 0.4 mg/dL (0.2-1.3); Total Protein 7.3 g/dL (6.3-8.2)
[2023-10-03] MEDS: ARIPiprazole 10 MG TAB PO SCH (13:30)
[2023-10-03] MEDS: OXcarbazepine 300 MG TAB PO SCH (13:30)
[2023-10-03] MEDS: Atomoxetine Hcl [Strattera] 25 MG Capsule PO SCH (13:40)
[2023-10-03] MEDS: buPROPion XL 150 MG TAB.ER.24H PO SCH (14:23)
--- NOTE | 2023-10-03 14:31 | P.HP ---
Psychiatric H&P - . H&P Date: 10/03/23 History & Physical: Allergies Allergy/AdvReac Type Severity Reaction Status Date / Time No Known Allergies Allergy Verified 10/02/23 17:39 Vital Signs Temp 98.3 F 10/02/23 14:45 Pulse 100 10/02/23 14:47 Resp 20 10/02/23 14:47 BP 136/80 10/02/23 14:47 Pulse Ox 98 10/02/23 14:47 FiO2 Intake & Output 10/02/23 10/03/23 10/03/23 18:59 06:59 18:59 Weight 74.298 kg Laboratory Last Values Urine Opiates Screen Not Detected (NotDetected) 10/02/23 10:23 Ur Oxycodone Screen Not Detected (NotDetected) 10/02/23 10:23 Urine Methadone Screen Not Detected (NotDetected) 10/02/23 10:23 Ur Barbiturates Screen Not Detected (NotDetected) 10/02/23 10:23 U Tricyclic Antidepress Not Detected (NotDetected) 10/02/23 10:23 Ur Phencyclidine Scrn Not Detected (NotDetected) 10/02/23 10:23 Ur Amphetamines Screen Not Detected (NotDetected) 10/02/23 10:23 U Methamphetamines Scrn Not Detected (NotDetected) 10/02/23 10:23 U Benzodiazepines Scrn Not Detected (NotDetected) 10/02/23 10:23 Urine Cocaine Screen Not Detected (NotDetected) 10/02/23 10:23 U Marijuana (THC) Screen Detected (NotDetected) H 10/02/23 10:23 SARS-CoV-2 (PCR) Not Detected (Not Detectd) 10/02/23 10:23 10/03/23 12:35 IDENTIFYING DATA: Patient is an unemployed, 28-year-old male who is presenting after suicide attempt HPI: Patient came into the ED with his family following a suicide attempt via overdose on heroin. He reports having overdosed on heroin 4 days prior to presentation. He says he wanted help for his mental health and therefore wanted to come into the hospital of his own volition. Patient was cooperative during assessment today. He reports a long history of mental health treatment that began in his childhood. He reports relocating from [place] to [place] 4 months ago and therefore states that he has not had any psychotropic medications for 4 months. Over the past one week, he states that he was restarted on Trileptal 300 mg twice a day, Strattera 25 mg daily, and Abilify 10 mg daily through [facility]. However, patient reports chronically low mood that has worsened over the past few months due to lack of medications and feelings of hopelessness. Though he had been sober for 3 years, he states that he impulsively decided to overdose with heroin. He reports chronic problems with sleep and has had up to 19 days (long ago) with little to no sleep. Generally periods of no sleep last for 3-5 days along with low mood, feeling tired, and having anxious thoughts about tryi ng to sleep. He denies symptoms consistent with hypomania or [place]. He denies substance use leading to insomnia. He currently endorses trouble falling and staying asleep. He reports good appetite, low energy, and anhedonia. He endorses having experienced visual hallucinations when he did not sleep for 19 days. Apart from this, he denies auditory and visual hallucinations. He denies paranoia. He denies current suicidal and homicidal ideation intent or plan. PSYCH HX: Previous psychiatrist: FABIAN Kohler over 10 years ago. He is setting up with a psychiatrist at [facility] - has not been seen for intake, per pt report Past tx: Wellbutrin, Gabapentin, and Suboxone in the past. Seroquel and trazodone have been helpful for sleep but caused dry mouth. Hospitalizations: 10 times, including 5 times in the past 1 year. Most recently [facility] May 2023 NSSI: Denies SA: Denies PMH: Hepatitis C ALLERGIES: NKDA PCP: Dr. Freeman Head injuries: Denies SUBSTANCE HX: Alcohol: Denies. Tobacco: 1 pack every 3 days Cannabis: He began using when he was 15 years old. He was using 8th over the span of 1 week until 8 years ago. Denies using since then. Heroin: He began using when he was 15 years old and used for numerous years. Peak use was 1 gram daily (3.5 years ago). Longest period of sobriety was 5 years in the past and has had multiple relapses. Had been sober for 3 years most recently prior to recent use. He has been on Suboxone for the past 2 years. Denies using other substances Rehab: once for heroin SOCIAL/LEGAL HX: Patient has lived in [place], [place], and [place] over the past 10 years. Parents were when patient was 17 years old. He has been staying at [facility] recently. His mother and sister live in [place] and he is close to them. 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 Legal problems: Probation for distribution of heroin. FAM PSYCH HX: Mother and grandmother: bipolar Suicide attempts: Mother MENTAL STATUS EXAM: General Appearance: Patient appears to be stated age is alert, directable, and attempts to cooperate. Multiple tattoos and piercings. Patient appears to have fair hygiene and grooming. Behavior: Patient is seated without any agitated behavior. Speech: Patient's speech is fluent and nonpressured. Mood/Affect: Patient reports their mood is "depressed", affect is congruent Suicidality/Homicidality: Patient denies having any homicidal ideation intent or plan. Denies any suicidal ideations intent or plan, but recent SA Perceptions: Patient denies any visual hallucinations and denies any auditory hallucinations Though content/process: There is no evidence of any delusional thought content and thought process is linear and goal-directed. Memory and concentration: AOX3, grossly intact for the purposes of this session. Can spell "WORLD" backwards Judgment and insight: Fair insight but poor and impulsive judgment STRENGTHS/WEAKNESSES: Strength is family support. Weakness is comorbid substance use INTELLECT: average IMPRESSIONS: Major depressive disorder, recurrent, severe, without psychotic features Insomnia Opioid use disorder, severe, with recent relapse in an suicide attempt via OD Nicotine dependence Hx cannabis use PLAN: -Patient is admitted under voluntary status to MHU for stabilization of psychiatric symptoms and safety. Patient signed adult voluntary form and medication consent and is placed in patient's chart. -Medications : - Continue Trileptal 300 mg twice a day, Strattera 25 mg daily, and Abilify 10 mg daily - Start Wellbutrin XL 150 mg daily. Start trazodone 50 mg qHS for sleep - NRT- patch - Clonidine 0.1 mg qHS PRN for anxiety - Vistaril PRN for anxiety/agitation -Patient was counselled on substance abuse and desired to cut back on use. Motivational interviewing. -Patient was informed of the risks, benefits and side effects of the medication and patient verbally consented to taking the medications. Patient signed med consent form and was placed in chart. -Internal Medicine consult to perform medical evaluation and physical. -SW on board for discharge planning. Encourage patient to participate in groups to work on coping skills. 10/03/23 12:47 10/03/23 13:43
[2023-10-03] MEDS: traZODone HCL 50 MG TAB PO SCH (20:33)
[2023-10-03 22:42] LABS: Chol/HDL Ratio 3.04 Ratio; LDL Cholesterol,Calculated 60.9 mg/dL (0.0-131.0); VLDL Calculation 18.94 mg/dL (5.00-40.00)
--- NOTE | 2023-10-04 01:31 | CONS ---
CONSULTATION CHIEF COMPLAINT: Major depression with history of suicidal attempt. HISTORY OF PRESENT ILLNESS: This is a 28-year-old white male who presented to the emergency room with depression and having threatened suicide by heroin overdose. REVIEW OF SYSTEMS: He is complaining of some pain in the right buttock where he has an abscess. He has had no fever, chills, chest pain, abdominal pain, etc. PAST MEDICAL HISTORY: To be detailed in his admitting summary. FAMILY HISTORY: To be detailed in his admitting summary. PERSONAL AND SOCIAL HISTORY: To be detailed in his admitting summary. PHYSICAL EXAMINATION: VITAL SIGNS: Normal. He is afebrile. HEAD, EARS, EYES, NOSE, MOUTH AND THROAT: Normal. CHEST: Clear. CARDIAC: Normal. ABDOMEN: Soft and nontender. EXTREMITIES: Normal. He has an abscess in the right buttock. He has numerous impetiginous-appearing lesions on his trunk, arms or legs. IMPRESSION: 1. Major depression. 2. Suicidal personality. 3. History of drug addiction. 4. Abscess, right buttock. 5. Multiple areas of bacterial infection of the skin. PLAN: General surgery referral for the abscess. 1. MMODL / IJN: [id number] /
[2023-10-04] MEDS: FLUoxetine HCL 20 MG CAP PO SCH (08:18)
[2023-10-04] MEDS: CEPHALEXIN 500 MG CAP PO SCH (09:20)
--- NOTE | 2023-10-04 12:37 | P.GSCN ---
History of Present Illness History of present illness: 28-year-old white male consulted for abscess of right gluteal area for the last 1 week. Patient has history of depression and suicidal attempt with overdose. Medical history no history of diabetes hypertension Personal history no known allergies examination patient was seen in his room signs are stable Chest is clear abdomen soft Right gluteal area patient has some mild redness noted on opening noted at the skin at that area but no evidence of any pus coming out or fluctuation noted that has similar spots on his neck also Plan is as there is no localized fluctuation or any area to drain we will watch very closely I put him on Keflex 500 mg 3 times a day and warm saline soaks 4 times a day we watch very closely I have discussed with him stable I&D will follow with you Past Medical History Past Medical History: Asthma Additional Past Medical History / Comment(s): hep c History of Any Multi-Drug Resistant Organisms: None Reported Past Surgical History: No Surgical Hx Reported Past Anesthesia/Blood Transfusion Reactions: No Reported Reaction Past Psychological History: Anxiety, Bipolar, Depression, Panic Disorder Smoking Status: Current every day smoker Past Alcohol Use History: Occasional Past Drug Use History: Heroin, Opiates - Past Family History Mother History Unknown: Yes Medications and Allergies Home Medications Medication Instructions Recorded Confirmed Type ARIPiprazole [Abilify] 10 mg PO DAILY 10/02/23 10/02/23 History Atomoxetine HCl [Strattera] 25 mg PO DAILY 10/02/23 10/02/23 History OXcarbazepine [Trileptal] 300 mg PO BID 10/02/23 10/02/23 History Allergies Allergy/AdvReac Type Severity Reaction Status Date / Time No Known Allergies Allergy Verified 10/02/23 17:39 Surgical - Exam Vital Signs Temp Pulse Resp BP Pulse Ox 98.1 F 111 H 20 131/85 99 10/02/23 10:14 10/02/23 10:14 10/02/23 10:14 10/02/23 10:14 10/02/23 10:14 Results - Labs 10/03/23 12:24 10/03/23 12:24 Abnormal Lab Results - Last 24 Hours (Table) 10/03/23 10/03/23 Range/Units 12:24 12:24 Potassium 5.9 H (3.5-5.1) mmol/L Creatinine 0.61 L (0.66-1.25) mg/dL Glucose 120 H (74-99) mg/dL Hemoglobin A1c 6.6 H (<=6.0) % ALT 57 H (4-49) U/L HDL Cholesterol 39.20 L (40.00-60.00) mg/dL TSH 0.346 L (0.465-4.680) mIU/L Diabetes panel 10/03/23 10/03/23 Range/Units 12:24 12:24 Sodium 138 (137-145) mmol/L Potassium 5.9 H (3.5-5.1) mmol/L Chloride 105 (98-107) mmol/L Carbon Dioxide 28 (22-30) mmol/L BUN 11 (9-20) mg/dL Creatinine 0.61 L (0.66-1.25) mg/dL Glucose 120 H (74-99) mg/dL Hemoglobin A1c 6.6 H (<=6.0) % Calcium 9.6 (8.4-10.2) mg/dL AST 34 (17-59) U/L ALT 57 H (4-49) U/L Alkaline Phosphatase 104 (38-126) U/L Total Protein 7.3 (6.3-8.2) g/dL Albumin 4.2 (3.5-5.0) g/dL Triglycerides 94.70 (0.00-149.00) mg/dL HDL Cholesterol 39.20 L (40.00-60.00) mg/dL Thyroid panel 10/03/23 Range/Units 12:24 TSH 0.346 L (0.465-4.680) mIU/L Calcium panel 10/03/23 Range/Units 12:24 Calcium 9.6 (8.4-10.2) mg/dL Albumin 4.2 (3.5-5.0) g/dL Pituitary panel 10/03/23 Range/Units 12:24 Sodium 138 (137-145) mmol/L Potassium 5.9 H (3.5-5.1) mmol/L Chloride 105 (98-107) mmol/L Carbon Dioxide 28 (22-30) mmol/L BUN 11 (9-20) mg/dL Creatinine 0.61 L (0.66-1.25) mg/dL Glucose 120 H (74-99) mg/dL Calcium 9.6 (8.4-10.2) mg/dL TSH 0.346 L (0.465-4.680) mIU/L Adrenal panel 10/03/23 Range/Units 12:24 Sodium 138 (137-145) mmol/L Potassium 5.9 H (3.5-5.1) mmol/L Chloride 105 (98-107) mmol/L Carbon Dioxide 28 (22-30) mmol/L BUN 11 (9-20) mg/dL Creatinine 0.61 L (0.66-1.25) mg/dL Glucose 120 H (74-99) mg/dL Calcium 9.6 (8.4-10.2) mg/dL Total Bilirubin 0.4 (0.2-1.3) mg/dL AST 34 (17-59) U/L ALT 57 H (4-49) U/L Alkaline Phosphatase 104 (38-126) U/L Total Protein 7.3 (6.3-8.2) g/dL Albumin 4.2 (3.5-5.0) g/dL
[2023-10-04] MEDS: lamoTRIgine 25 MG TAB PO SCH (13:51)
[2023-10-04] MEDS: MUPIROCIN 2% OINT 22 GM TUBE TOPICAL SCH (13:51)
[2023-10-04] MEDS: NICOTINE 21MG/24HR PATCH TRANSDERM SCH (13:51)
--- NOTE | 2023-10-04 14:05 | P.PN ---
Progress Note - Text Progress Note Date: 10/04/23 Interval History: Patient was seen wandering the hallways and was directable and agreeable to silvana babin with scientific technical writer in the office. Patient states that he came to the hospital after a relapse of heroine, to which he overdosed on. He states that he needs to get back onto his psych medications. Patient seems to be focused on medication. Stating he "needs something to raise his dopamine". Claims that he does have a history of bipolar disorder and has history of several manic episodes in the past. He was a bit unpredictable however fairly reasonable and cooperative with scientific technical writer. Ticket Puller went over medication options with the patient. Explained there are better medications that could help his mental health, Patient agreeable.. At this time patient denies any suicidal or homical ideations, intent or plan. Patient denies any auditory, visual hallucinations and denies any paranoia or delusions. Patient denies any side effects from the medications and has been compliant with meds. MENTAL STATUS EXAM: General Appearance: Patient appears to be stated age is alert, directable, and attempts to cooperate. Multiple tattoos and piercings. Patient appears to have fair hygiene and grooming. Behavior: Patient is seated without any agitated behavior. Speech: Patient's speech is fluent and nonpressured. Mood/Affect: Patient reports their mood is "alright", affect is congruent Suicidality/Homicidality: Patient denies having any homicidal ideation intent or plan. Denies any suicidal ideations intent or plan, but recent SA Perceptions: Patient denies any visual hallucinations and denies any auditory hallucinations Though content/process: There is no evidence of any delusional thought content and thought process is linear and goal-directed. Memory and concentration: AOX3, grossly intact for the purposes of this session. Judgment and insight: Fair insight but poor and impulsive judgment IMPRESSIONS: Suicide attempt by overdose of heroin/opioids Bipolar disorder, current episode depressed Insomnia Opioid use disorder, severe Nicotine dependence Cannabis use disorder PLAN: -Patient is admitted under voluntary status to MHU for stabilization of psychiatric symptoms and safety. Patient signed adult voluntary form and medication consent and is placed in patient's chart. -Medications : - discontinue Trileptal & Strattera, continue Abilify 10 mg daily, Start doxipin 10 mg qhs for sleep. Lamictal 25mg bid for mood stabilization/depression, spoke with patient about the risk of a rash and to monitor his skin, he verbally understood and agreed. discontinue prozac -Continue with Wellbutrin XL 150 mg daily for mood. discontinue trazodone - NRT- patch - Clonidine 0.1 mg qHS PRN for anxiety - Vistaril PRN for anxiety/agitation -SW on board for discharge planning. Encourage patient to participate in groups to work on coping skills. Currently awaiting [facility] intake date for substance use rehab.
[2023-10-04] MEDS: ACETAMINOPHEN TAB 325 MG TAB PO PRN (14:32)
[2023-10-04] MEDS: CLINDAMYCIN 150 MG CAP PO SCH (16:16)
[2023-10-04] MEDS: DOXEPIN 10 MG CAP PO SCH (21:22)
--- NOTE | 2023-10-04 21:22 | PN ---
PROGRESS NOTE The patient will be prescribed clindamycin and mupirocin for the various impetiginous lesions that he has on his skin throughout the body. MMODL / IJN: [id number] /
[2023-10-04] MEDS: hydrOXYzine HCL 25 MG TAB PO PRN (21:23)
--- NOTE | 2023-10-05 11:59 | P.PN ---
Progress Note - Text Progress Note Date: 10/05/23 Interval History: Patient was seen wandering the hallways and was directable and agreeable to sp mayk with narrative writer in the office. Pt reports feeling restless due to medications, mainly in his legs, denying any pacing at this time. Patient seems to be focused on medication, asked if there was any alternatives to his ADHD medication. Pt requesting medications for his ADD and ADHD, resume Strattera today. He was a bit unpredictable however fairly reasonable and cooperative with narrative writer. Claims that he is still set on going to rehab. Industrial Servicer went over medication options with the patient. At this time patient denies any suicidal or homical ideations, intent or plan. Patient denies any auditory, visual hallucinations and denies any paranoia or delusions. Patient reports restlessness from the medications and has been compliant with meds. MENTAL STATUS EXAM: General Appearance: Patient appears to be stated age is alert, directable, and attempts to cooperate. Multiple tattoos and piercings. Patient appears to have fair hygiene and grooming. Behavior: Patient is seated without any agitated behavior. Appears to be restless today in the chair. Speech: Patient's speech is fluent and nonpressured. Mood/Affect: Patient reports their mood is "alright", affect is congruent improving mildly Suicidality/Homicidality: Patient denies having any homicidal ideation intent or plan. Denies any suicidal ideations intent or plan, but recent SA Perceptions: Patient denies any visual hallucinations and denies any auditory hallucinations Though content/process: There is no evidence of any delusional thought content and thought process is linear and goal-directed. Focused on medications. Memory and concentration: AOX3, grossly intact for the purposes of this session. Judgment and insight: Fair insight but poor and impulsive judgment IMPRESSIONS: Suicide attempt by overdose of heroin/opioids Bipolar disorder, current episode depressed Insomnia Opioid use disorder, severe Nicotine dependence Cannabis use disorder PLAN: -Patient is admitted under voluntary status to MHU for stabilization of psychiatric symptoms and safety. Patient signed adult voluntary form and medication consent and is placed in patient's chart. -Medications : -Abilify 10 mg daily, doxipin increase to 20 mg qhs for sleep. Discontinuing Lamictal due to possible akathisia -Will resume home medication Staterra -Continue with Wellbutrin XL 150 mg daily for mood. - Clonidine 0.1 mg qHS PRN for anxiety - Vistaril PRN for anxiety/agitation - NRT- patch -SW on board for discharge planning. Encourage patient to participate in groups to work on coping skills. Currently awaiting [facility] intake date for substance use rehab. likely discharge if patient is improving.
[2023-10-05] MEDS ORDERED: MD COMMUNICATION TO PHARMACY 1 EACH MISC PO PRN (12:04)
[2023-10-05] MEDS: Atomoxetine Hcl [Strattera] 25 MG Capsule PO SCH (15:44)
[2023-10-05] MEDS: DOXEPIN 10 MG CAP PO SCH (20:14)
--- NOTE | 2023-10-05 21:36 | PN ---
PROGRESS NOTE This is a 28-year-old gentleman, I was called in for possible abscess on the gluteal area. There is mild redness noted. No discharge and no tenderness noted. The patient is on antibiotic by mouth. At this point, the patient has not progressed to any abscess formation. We will follow with you. MMABENA / IJN: [id number] /
--- NOTE | 2023-10-06 11:49 | P.PN ---
Progress Note - Text Progress Note Date: 10/06/23 Interval hx: Patient was seen wandering the hallways and was directable and agreeable to speak with science writer in the office. Pt reports feeling better today, stating that his restlessness has subsided. States upon discharge, he will return to the [facility], and that he has to see his physician on the , and he will go to rehab at that time. claims that he has been trying to go to groups. At this time patient denies any suicidal or homical ideations, intent or plan. Patient continues to be focused on medications. Patient denies any auditory, visual hallucinations and denies any paranoia or delusions. MENTAL STATUS EXAM: General Appearance: Patient appears to be stated age is alert, directable, and attempts to cooperate. Multiple tattoos and piercings. Patient appears to have fair hygiene and grooming. Behavior: Patient is seated without any agitated behavior. Speech: Patient's speech is fluent and nonpressured. Mood/Affect: Patient reports their mood is "alright", affect is congruent improving mildly Suicidality/Homicidality: Patient denies having any homicidal ideation intent or plan. Denies any suicidal ideations intent or plan Perceptions: Patient denies any visual hallucinations and denies any auditory hallucinations Though content/process: There is no evidence of any delusional thought content and thought process is linear and goal-directed. Focused on medications. Memory and concentration: AOX3, grossly intact for the purposes of this session. Judgment and insight:improving mildly IMPRESSIONS: Suicide attempt by overdose of heroin/opioids Bipolar disorder, current episode depressed Insomnia Opioid use disorder, severe Nicotine dependence Cannabis use disorder PLAN: -Patient is admitted under voluntary status to MHU for stabilization of psychiatric symptoms and safety. Patient signed adult voluntary form and medication consent and is placed in patient's chart. -Medications : -Abilify 10 mg daily, increase doxipin 25 mg qhs for sleep. Will resume home medication Staterra for adhd, Wellbutrin XL 150 mg daily for mood. add mobic 15mg daily, for pain and dc motrin. - Clonidine 0.1 mg qHS PRN for anxiety - Vistaril PRN for anxiety/agitation - NRT- patch -SW on board for discharge planning. Encourage patient to participate in groups to work on coping skills. likely discharge if patient continues to improve. will be going back to [facility].
[2023-10-06] MEDS: MELOXICAM 7.5 MG TAB PO SCH (11:52)
[2023-10-06] MEDS: DOXEPIN 25 MG CAP PO SCH (20:01)
[2023-10-07 06:50] VITALS: BP 124/74; PULSE 93; RESP 18; TEMP 98.1
--- NOTE | 2023-10-07 10:29 | P.DS ---
Providers Date of admission: 10/02/23 14:04 Expected date of discharge: 10/07/23 Attending physician: Elmo Gar MD Consults: 10/02/23 14:25 Consult Physician Routine Consulting Provider: Hu Freeman Consult Reason/Comments: history and physical/medical management Do you want consulting provider notified?: Yes 10/02/23 15:42 Consult Physician Routine Consulting Provider: Cheikh Balderas Consult Reason/Comments: buttock abscess Do you want consulting provider notified?: Yes, Notify in am Primary care physician: Hu Freeman - Discharge Diagnosis(es) (1) Insomnia Current Visit: Yes Status: Acute Priority: Medium (2) Severe opioid use disorder Current Visit: Yes Status: Acute Priority: High (3) Nicotine dependence Current Visit: Yes Status: Acute Priority: Low (4) Cannabis use disorder Current Visit: Yes Status: Acute Priority: Medium (5) Bipolar depression Current Visit: Yes Status: Acute Priority: High (6) Suicide attempt by heroin overdose Current Visit: Yes Status: Acute Priority: High Hospital Course: Admission HPI: Admission note was completed by Dr Mark "patient came into the ED with his family following a suicide attempt via overdose on heroin. He reports having overdosed on heroin 4 days prior to presentation. He says he wanted help for his mental health and therefore wanted to come into the hospital of his own volition. Patient was cooperative during assessment today. He reports a long history of mental health treatment that began in his childhood. He reports relocating from [place] to [place] 4 months ago and therefore states that he has not had any psychotropic medications for 4 months. Over the past one week, he states that he was restarted on Trileptal 300 mg twice a day, Strattera 25 mg daily, and Abilify 10 mg daily through [facility]. However, patient reports chronically low mood that has worsened over the past few months due to lack of medications and feelings of hopelessness. Though he had been sober for 3 years, he states that he impulsively decided to overdose with heroin. He reports chronic problems with sleep and has had up to 19 days (long ago) with little to no sleep. Generally periods of no sleep last for 3-5 days along with low mood, feeling tired, and having anxious thoughts about trying to sleep. He denies symptoms consistent with hypomania or [place]. He denies substance use leading to insomnia. He currently endorses trouble falling and staying asleep. He reports good appetite, low energy, and anhedonia. He endorses having experienced visual hallucinations when he did not sleep for 19 days. Apart from this, he denies auditory and visual hallucinations. He denies paranoia. He denies current suicidal and homicidal ideation intent or plan." Hospital course: Upon admission to the unit patient was directable and agreeable to commence treatment and signed adult voluntary form. Patient got along well with other patients on the unit and followed unit protocol. Patient was compliant with the medications and denied any side effects throughout hospital course. Patient was started on Abilify 10 mg daily for mood stabilization, doxepin increased to dose of 25 mg nightly for sleep/mood, patient was resumed back on his home dose of Strattera for ADHD, Wellbutrin XL was resumed at 150 mg daily for mood adjunct, Mobic 15 mg daily for pain, Vistaril as needed for anxiety. Patient is cu rrently not on opiate replacement treatment. patient spoke of his stressors and engaged in therapy both group and individual. Patient was also seen by medical team for history and physical exam. Patient was found to have an abscess on his buttock and was seen by surgery, recommended clindamycin and Keflex for 5 days and did not recommend draining. Throughout the course of the hospitalization [place] gradually improved with regards to mood, anxiety, irritability, sleep and returned back to their baseline level of functioning. On the day of discharge patient denied any suicidal or homicidal ideations intent or plan denied any auditory or visual hallucinations. Patient endorsed wanting to live for his future and his sobriety. The patient denied any access to guns or weapons. Patient denied any paranoia and did not endorse any delusions. Patient does have a significant history of substance abuse and was counseled on abstaining from all substances including alcohol and marijuana. Patient was initially going to go to [facility] however chose to go back to [facility] for a few days instead as discussed with his mother. Patient was also counseled on the medications and need for regular compliance and was encouraged to follow-up with their outpatient appointment for mental health and also for primary care. Prior to discharge a family meeting will be arranged by social work supervisor to answer any questions and ensure safety upon discharge. Mental status exam: General Appearance: Patient appears to be thin, stated age is alert, pleasant, and cooperative. Patient is in no acute distress and has improved hygiene and grooming Behavior: Patient is calmly seated without any agitated behavior. Speech: Patient's speech is fluent and nonpressured. Mood/Affect: Patient reports their mood is "good", affect is congruent and euthymic. Suicidality/Homicidality: Patient denies having any suicidal or homicidal ideation intent or plan. Perceptions: Patient denies any auditory or visual hallucinations. Though content/process: There is no evidence of any delusional thought content and thought process is linear and goal-directed. More future oriented Memory and concentration: AOX3, grossly intact for the purposes of this session. Can spell "WORLD" backwards correctly. Judgment and insight: Chronically poor, however has improved with guarded prognosis Impression: Suicide attempt by overdose of heroin/opiates Bipolar disorder, current episode depressed Insomnia Opioid use disorder, severe Nicotine dependence Cannabis use disorder Plan: -Continue with discharge today as patient has improved and stabilized psychiatrically and is not currently an imminent threat to himself and/or others. Patient will remain at chronically elevated risk for harm to self and/or others due to his impulsivity and polysubstance abuse. -Continue medications: Abilify p.o. 10 mg daily for mood stabilization, doxepin 25 mg nightly for sleep/mood, can continue with home doses of Strattera for ADHD, Wellbutrin XL 150 mg daily for mood adjunct, Vistaril daily as needed for anxiety. -Patient was counseled on the need for medication compliance and appropriate follow-up at mental health and also primary care for medical issues. Patient verbalized understanding and agreed. -Social work to arrange for and conduct family meeting to ensure safety upon discharge and answer any questions/concerns. Social work also to arrange for patients follow up appointments with [facility] for psychiatric care along with follow up with primary care provider. -Patient counseled on abstaining from recreational drugs and marijuana and alcohol. Was informed/educated on the adverse effects on their physical and mental health. Patient verbally agreed and understood. Patient chose to go back to [facility] instead of rehab at this time. -Patient was instructed to return to the hospital or seek immediate medical care if their psychiatric or medical symptoms do worsen or reoccur. Allergies Allergy/AdvReac Type Severity Reaction Status Date / Time No Known Allergies Allergy Verified 10/02/23 17:39 Laboratory Results WBC 9.2 k/uL (3.8-10.6) 10/03/23 12:24 RBC 4.95 m/uL (4.30-5.90) 10/03/23 12:24 Hgb 13.9 gm/dL (13.0-17.5) 10/03/23 12:24 Hct 43.6 % (39.0-53.0) 10/03/23 12:24 MCV 88.1 fL (80.0-100.0) 10/03/23 12:24 MCH 28.1 pg (25.0-35.0) 10/03/23 12: MCHC 31.9 g/dL (31.0-37.0) 10/03/23 12:24 RDW 14.8 % (11.5-15.5) 10/03/23 12:24 Plt Count 314 k/uL (150-450) 10/03/23 12:24 MPV 7.7 10/03/23 12:24 Neutrophils % 72 % 10/03/23 12:24 Lymphocytes % 17 % 10/03/23 12:24 Monocytes % 5 % 10/03/23 12:24 Eosinophils % 4 % 10/03/23 12:24 Basophils % 1 % 10/03/23 12:24 Neutrophils # 6.6 k/uL (1.3-7.7) 10/03/23 12:24 Lymphocytes # 1.6 k/uL (1.0-4.8) 10/03/23 12:24 Monocytes # 0.5 k/uL (0-1.0) 10/03/23 12:24 Eosinophils # 0.4 k/uL (0-0.7) 10/03/23 12:24 Basophils # 0.1 k/uL (0-0.2) 10/03/23 12:24 Sodium 138 mmol/L (137-145) 10/03/23 12:24 Potassium 5.9 mmol/L (3.5-5.1) H 10/03/23 12:24 Chloride 105 mmol/L (98-107) 10/03/23 12:24 Carbon Dioxide 28 mmol/L (22-30) 10/03/23 12:24 Anion Gap 5 mmol/L 10/03/23 12:24 BUN 11 mg/dL (9-20) 10/03/23 12:24 Creatinine 0.61 mg/dL (0.66-1.25) L 10/03/23 12:24 Est GFR (CKD-EPI)AfAm >90 (>60 ml/min/1.73 sqM) 10/03/23 12:24 Est GFR (CKD-EPI)NonAf >90 (>60 ml/min/1.73 sqM) 10/03/23 12:24 Glucose 120 mg/dL (74-99) H 10/03/23 12:[address] Glu mg/dL 143 mg/dL 10/03/23 12:24 Hemoglobin A1c 6.6 % (<=6.0) H 10/03/23 12:24 Calcium 9.6 mg/dL (8.4-10.2) 10/03/23 12:24 Total Bilirubin 0.4 mg/dL (0.2-1.3) 10/03/23 12:24 AST 34 U/L (17-59) 10/03/23 12:24 ALT 57 U/L (4-49) H 10/03/23 12:24 Alkaline Phosphatase 104 U/L (38-126) 10/03/23 12:24 Total Protein 7.3 g/dL (6.3-8.2) 10/03/23 12:24 Albumin 4.2 g/dL (3.5-5.0) 10/03/23 12:24 Triglycerides 94.70 mg/dL (0.00-149.00) 10/03/23 12:24 Cholesterol 119.00 mg/dL (0.00-200.00) 10/03/23 12:24 LDL Cholesterol, Calc 60.9 mg/dL (0.0-131.0) 10/03/23 12:24 VLDL Cholesterol, Calc 18.94 mg/dL (5.00-40.00) 10/03/23 12:24 HDL Cholesterol 39.20 mg/dL (40.00-60.00) L 10/03/23 12:24 Cholesterol/HDL Ratio 3.04 Ratio 10/03/23 12:24 TSH 0.346 mIU/L (0.465-4.680) L 10/03/23 12:24 Urine Opiates Screen Not Detected (NotDetected) 10/02/23 10:23 Ur Oxycodone Screen Not Detected (NotDetected) 10/02/23 10:23 Urine Methadone Screen Not Detected (NotDetected) 10/02/23 10:23 Ur Barbiturates Screen Not Detected (NotDetected) 10/02/23 10:23 U Tricyclic Antidepress Not Detected (NotDetected) 10/02/23 10:23 Ur Phencyclidine Scrn Not Detected (NotDetected) 10/02/23 10:23 Ur Amphetamines Screen Not Detected (NotDetected) 10/02/23 10:23 U Methamphetamines Scrn Not Detected (NotDetected) 10/02/23 10:23 U Benzodiazepines Scrn Not Detected (NotDetected) 10/02/23 10:23 Urine Cocaine Screen Not Detected (NotDetected) 10/02/23 10:23 U Marijuana (THC) Screen Detected (NotDetected) H 10/02/23 10:23 SARS-CoV-2 (PCR) Not Detected (Not Detectd) 10/02/23 10:23 Vital Signs Temp 98.1 F 10/07/23 06:00 Pulse 93 10/07/23 06:00 Resp 18 10/07/23 06:00 BP 124/74 10/07/23 06:00 Pulse Ox 99 10/07/23 06:00 FiO2 Patient Condition at Discharge: Stable Plan - Discharge Summary Discharge Rx Participant: No New Discharge Prescriptions: New hydrOXYzine HCL [Atarax] 50 mg PO DAILY PRN 14 Days #28 tab PRN Reason: Anxiety Nicotine 21Mg/24Hr Patch [Habitrol] 1 patch TRANSDERM DAILY 14 Days #14 patch Cephalexin [Keflex] 500 mg PO TID 2 Days #6 cap Meloxicam [Mobic] 15 mg PO DAILY 30 Days #60 tab Mupirocin 2% Oint [Bactroban 2% Oint] 1 applic TOPICAL TID #1 each Clindamycin [Cleocin] 300 mg PO TID 2 Days #12 cap Doxepin [SINEquan] 25 mg PO HS 30 Days #30 cap buPROPion XL [Wellbutrin XL] 150 mg PO DAILY 30 Days #30 tab Continue Atomoxetine HCl [Strattera] 25 mg PO DAILY ARIPiprazole [Abilify] 10 mg PO DAILY 30 Days #30 tab Discontinued OXcarbazepine [Trileptal] 300 mg PO BID Discharge Medication List Atomoxetine HCl [Strattera] 25 mg PO DAILY 10/02/23 [History] ARIPiprazole [Abilify] 10 mg PO DAILY 30 Days #30 tab 10/07/23 [Rx] Cephalexin [Keflex] 500 mg PO TID 2 Days #6 cap 10/07/23 [Rx] Clindamycin [Cleocin] 300 mg PO TID 2 Days #12 cap 10/07/23 [Rx] Doxepin [SINEquan] 25 mg PO HS 30 Days #30 cap 10/07/23 [Rx] Meloxicam [Mobic] 15 mg PO DAILY 30 Days #60 tab 10/07/23 [Rx] Mupirocin 2% Oint [Bactroban 2% Oint] 1 applic TOPICAL TID #1 each 10/07/23 [Rx] Nicotine 21Mg/24Hr Patch [Habitrol] 1 patch TRANSDERM DAILY 14 Days #14 patch 10/07/23 [Rx] buPROPion XL [Wellbutrin XL] 150 mg PO DAILY 30 Days #30 tab 10/07/23 [Rx] hydrOXYzine HCL [Atarax] 50 mg PO DAILY PRN 14 Days #28 tab 10/07/23 [Rx] Follow up Appointment(s)/Referral(s): [facility] - 10/13/23 9:00 am (10/13/2023 9:00AM - 10:00AM [facility] 10/14/2023 8:00AM - 8:30AM ISE[facility] BRADLEY ) Hu Freeman MD [Primary Care Provider] - 1-2 days Activity/Diet/Wound Care/Special Instructions: Avoid the use of street drugs and alcohol. Take all medications as prescribed. When you are in need of refills on your medications, please contact your medical provider and/or outpatient psychiatrist/provider to have this done. Please go to your scheduled outpatient appointment for aftercare treatment. If symptoms return or become worse, call the crisis line at and/or go to the nearest emergency room for evaluation. National Suicide Hotline 988. Discharge Disposition: OTHER INSTITUTION NOT DEFINED
== END 2023-10-07 12:17 | disposition home or self-care (01) | DRG 753 ==
LOC: EC 10:11 → 3MHU 14:04
PROVIDERS: ADMIT Psychiatry & Neurology Psychiatry; ATTEND Psychiatry & Neurology Psychiatry
DX: F31.30 Bipolar disorder, current episode depressed, mild or moderate severity, unspecified (principal); B19.20 Unspecified viral hepatitis C without hepatic coma; F12.10 Cannabis abuse, uncomplicated; F90.9 Attention-deficit hyperactivity disorder, unspecified type; G47.00 Insomnia, unspecified; J45.909 Unspecified asthma, uncomplicated; L02.31 Cutaneous abscess of buttock; T40.1X2A Poisoning by heroin, intentional self-harm, initial encounter; Z79.899 Other long term (current) drug therapy; Z91.51 Personal history of suicidal behavior; L01.00 Impetigo, unspecified; Z11.52 Encounter for screening for COVID-19; Z28.21 Immunization not carried out because of patient refusal; Z81.8 Family history of other mental and behavioral disorders; F11.20 Opioid dependence, uncomplicated; F17.210 Nicotine dependence, cigarettes, uncomplicated; Z71.51 Drug abuse counseling and surveillance of drug abuser
CPT/HCPCS: 80053; 80061; 80306; 82075; 83036; 84443; 85025; 87635; 99285

== ENCOUNTER → 2024-03-02 | Outpatient (CLI) | payer OTHER ==
[2024-03-02 10:51] LABS: Basophils # (A) 0.05 X 10*3/uL (0.00-0.10); Eosinophils # (A) 0.11 X 10*3/uL (0.04-0.35); Eosinophils % (A) 2.2 %; HCT 43.9 % (39.6-50.0); HGB 14.4 g/dL (13.0-17.0); Lymphocytes % (A) 27.4 %; MCH 28.2 pg (27.0-32.0); MCHC 32.8 g/dL (32.0-37.0); MCV 85.9 FL (80.0-97.0); Mean Platelet Volume 11.4 FL (9.5-12.2); Monocytes # (A) 0.35 X 10*3/uL (0.20-1.00); Monocytes % (A) 6.8 %; NRBC Per 100 WBC 0 X 10*3/uL (0.00-0.01); Neutrophils # (A) 3.19 X 10*3/uL (1.80-7.70); Neutrophils % (A) 62.4 %; Platelet Count 208 X 10*3/uL (140-440); RBC 5.11 X 10*6/uL (4.40-5.60); RDW 12.8 % (11.5-14.5); WBC 5.11 X 10*3/uL (4.50-10.00)
[2024-03-02 11:17] LABS: Hepatitis B Surface Antigen Nonreactive (Nonreactive)
[2024-03-02 11:32] LABS: Alpha Fetoprotein, Tumor Mkr <3.00 ng/mL (0.00-7.90)
[2024-03-02 13:41] LABS: ALT 29 U/L (10-49); AST 40 U/L (14-35); Albumin 4.8 g/dL (3.8-4.9); Albumin/Globulin Ratio 1.78 Ratio (1.60-3.17); Alkaline Phosphatase 139 U/L (41-126); Blood Urea Nitrogen 14.1 mg/dL (9.0-27.0); Calcium 9.6 mg/dL (8.7-10.3); Carbon Dioxide 23.6 mmol/L (21.6-31.8); Chloride 100 mmol/L (96-109); Globulin 2.7 g/dL (1.6-3.3); Glucose 121 mg/dL (70-110); Potassium 5.3 mmol/L (3.5-5.5); Sodium 136 mmol/L (135-145); Total Bilirubin 0.5 mg/dL (0.3-1.2); Total Protein 7.5 g/dL (6.2-8.2)
--- NOTE | 2024-03-02 23:14 | US ---
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 FINDINGS: EXAM MEASUREMENTS: Liver Length: 14.1 cm Gallbladder Wall: 0.16 cm CBD: 0.53 cm Right Kidney: 10.9 x 6.0 x 4.6 cm ED CASE MANAGER NOTES: Pancreas: parts seen appear wnl Liver: wnl Gallbladder: small layer of debris seen Evidence for sonographic Montague's sign: No CBD: wnl Right Kidney: wnl IMPRESSION: 1. Minimal debris within the gallbladder.
== END | disposition home or self-care (01) ==
LOC: RADUSWWP 06:48
PROVIDERS: ATTEND Internal Medicine Gastroenterology
DX: B19.20 Unspecified viral hepatitis C without hepatic coma (principal)
CPT/HCPCS: 76705; 80053; 81596; 82105; 85025; 86704; 87340; 87522

== ENCOUNTER 2024-04-11 03:14 | Emergency (ER) | payer OTHER ==
[~2024-04-11 03:14] MED LIST: AMPICILLIN-SULBACTAM 3 GM VIAL ONE; KETOROLAC 15 MG/ML 1 ML VIAL ONE; LORazepam 2 MG/ML INJ ONE; SODIUM CHLORIDE 0.9% 1,000 ML BAG ONE; SODIUM CHLORIDE 0.9% 100 ML BAG IV ONE
[2024-04-11] MEDS ORDERED: LORazepam 2 MG/ML INJ ONE (07:56)
== END 2024-04-11 08:00 | disposition other institution (70) ==
LOC: EC 03:14
DX: L02.91 Cutaneous abscess, unspecified (principal)
CPT/HCPCS: 36415; 85652; 87040; 96361; 96374; 96375; 99282

== ENCOUNTER → 2024-05-04 | Outpatient (CLI) | payer OTHER | END | disposition home or self-care (01) | LOC: LABWHC1 09:45 | PROVIDERS: ATTEND Nurse Practitioner Family | DX: B19.20 Unspecified viral hepatitis C without hepatic coma (principal) | CPT/HCPCS: 36415 ==

== ENCOUNTER 2024-11-08 12:01 | Emergency (ER) | payer OTHER ==
[2024-11-08 12:08] VITALS: TEMP 97.6
--- NOTE | 2024-11-08 13:04 | ED ---
Abdominal Pain HPI - General Chief Complaint: Abdominal Pain Stated Complaint: abdominal pain, nausea Time Seen by Provider: 11/08/24 12:24 Source: patient, RN notes reviewed Mode of arrival: ambulatory Limitations: no limitations - History of Present Illness Initial Comments: 29-year-old male presents emergency department complaint of sores, methampheta mine use. Patient states that he is having cramping anxiety type issues after using methamphetamines he has a longstanding history of meth use he states he has multiple sores on his body. He states he had some nausea denies any localized abdominal pain denies being suicidal homicidal denies any other complaints. - Related Data Home Medications Medication Instructions Recorded Confirmed Atomoxetine HCl [Strattera] 25 mg PO DAILY 10/02/23 10/02/23 Previous Rx's Medication Instructions Recorded ARIPiprazole [Abilify] 10 mg PO DAILY 30 Days #30 tab 10/07/23 Cephalexin [Keflex] 500 mg PO TID 2 Days #6 cap 10/07/23 Clindamycin [Cleocin] 300 mg PO TID 2 Days #12 cap 10/07/23 Doxepin [SINEquan] 25 mg PO HS 30 Days #30 cap 10/07/23 Meloxicam [Mobic] 15 mg PO DAILY 30 Days #60 tab 10/07/23 Mupirocin 2% Oint [Bactroban 2% 1 applic TOPICAL TID #1 each 10/07/23 Oint] Nicotine 21Mg/24Hr Patch [Habitrol] 1 patch TRANSDERM DAILY 14 Days 10/07/23 #14 patch buPROPion XL [Wellbutrin XL] 150 mg PO DAILY 30 Days #30 tab 10/07/23 hydrOXYzine HCL [Atarax] 50 mg PO DAILY PRN 14 Days #28 tab 10/07/23 Cephalexin [Keflex] 500 mg PO Q6HR #40 cap 11/08/24 Sulfamethox-Tmp 800-160Mg [Bactrim 1 each PO Q12HR #20 tab 11/08/24 Ds] Allergies Allergy/AdvReac Type Severity Reaction Status Date / Time No Known Allergies Allergy Verified 11/08/24 12:09 Review of Systems ROS Statement: Those systems with pertinent positive or pertinent negative responses have been documented in the HPI. ROS Other: All systems not noted in ROS Statement are negative. Past Medical History Past Medical History: Asthma Additional Past Medical History / Comment(s): hep c History of Any Multi-Drug Resistant Organisms: None Reported Past Surgical History: No Surgical Hx Reported Past Anesthesia/Blood Transfusion Reactions: No Reported Reaction Past Psychological History: Anxiety, Bipolar, Depression, Panic Disorder Smoking Status: Current every day smoker Past Alcohol Use History: Occasional Past Drug Use History: Heroin, Methamphetamine, Opiates - Past Family History Mother History Unknown: Yes General Exam Limitations: no limitations General appearance: alert, in no apparent distress Head exam: Present: atraumatic, normocephalic, normal inspection Eye exam: Present: normal appearance, PERRL, EOMI. Absent: scleral icterus, conjunctival injection, periorbital swelling ENT exam: Present: mucous membranes moist. Absent: normal exam, normal oropharynx (Multiple sores) Neck exam: Present: full ROM. Absent: normal inspection, tenderness, meningismus, lymphadenopathy Respiratory exam: Present: normal lung sounds bilaterally. Absent: respiratory distress, wheezes, rales, rhonchi, stridor Cardiovascular Exam: Present: normal rhythm, tachycardia, normal heart sounds. Absent: systolic murmur, diastolic murmur, rubs, gallop, clicks GI/Abdominal exam: Present: soft, normal bowel sounds. Absent: distended, tenderness, guarding, rebound, rigid Neurological exam: Present: alert, oriented X3 Psychiatric exam: Present: anxious Skin exam: Present: warm, dry, intact, normal color, rash, other (Diffuse open lesions worse over extremities torso and back. And buttocks) Course Vital Signs 11/08/24 11/08/24 12:06 13:08 Temperature 97.6 F Pulse Rate 123 H 104 H Respiratory 22 18 Rate Blood Pressure 122/80 131/79 O2 Sat by Pulse 98 98 Oximetry Medical Decision Making - Medical Decision Making Was pt. sent in by a medical professional or institution (, PA, DRYWALL CARRIER, urgent care, hospital, or group home...) When possible be specific @ -No Did you speak to anyone other than the patient for history (EMS, parent, family, police, friend...)? What history was obtained from this source @ -No Did you review nursing and triage notes (agree or disagree)? Why? @ -I reviewed and agree with nursing and triage notes Were old charts reviewed (outside hosp., previous admission, EMS record, old EKG, old radiological studies, urgent care reports/EKG's, group home records)? Report findings @ -No old charts were reviewed Differential Diagnosis (chest pain, altered mental status, abdominal pain women, abdominal pain men, vaginal bleeding, weakness, fever, dyspnea, syncope, headache, dizziness, GI bleed, back pain, seizure, CVA, palpatations, mental health, musculoskeletal)? @ -Methamphetamine abuse, cirrhosis, cellulitis, medication reaction, nausea, abdominal pain EKG interpreted by me (3pts min.). @ -None X-rays interpreted by me (1pt min.). @ -None done CT interpreted by me (1pt min.). @ -None done U/S interpreted by me (1pt. min.). @ -None done What testing was considered but not performed or refused? (CT, X-rays, U/S, labs)? Why? @ -None What meds were considered but not given or refused? Why? @ -None Did you discuss the management of the patient with other professionals (professionals i.e. , PA, DRYWALL CARRIER, lab, RT, psych nurse, school social worker, dumper mold cleaner, teacher, commercial credit officer, watch caser)? Give summary @ -No Was smoking cessation discussed for >3mins.? @ -No Was critical care preformed (if so, how long)? @ -No Were there social determinants of health that impacted care today? How? (Homelessness, low income, unemployed, alcoholism, drug addiction, transportation, low edu. Level, literacy, decrease access to med. care, usp, rehab)? @ -No Was there de-escalation of care discussed even if they declined (Discuss DNR or withdrawal of care, Hospice)? DNR status @ -No What co-morbidities impacted this encounter? (DM, HTN, Smoking, COPD, CAD, Cancer, CVA, ARF, Chemo, Hep., AIDS, mental health diagnosis, sleep apnea, morbid obesity)? @ -[Drug abuse Was patient admitted / discharged? Hospital course, mention meds given and route, prescriptions, significant lab abnormalities, going to OR and other pertinent info. @ -Discharge patient having symptoms related to methamphetamine abuse patient has multiple sores will be given antibiotics for concerns of cellulitic changes. Patient has no drainable abscesses. Patient discharged in stable condition. Undiagnosed new problem with uncertain prognosis? @ -No Drug Therapy requiring intensive monitoring for toxicity (Heparin, Nitro, Insulin, Cardizem)? @ -No Were any procedures done? @ -No Diagnosis/symptom? @Methamphetamine abuse multiple wounds Acute, or Chronic, or Acute on Chronic? @ -Acute Uncomplicated (without systemic symptoms) or Complicated (systemic symptoms)? @ -complicated Side effects of treatment? @ -No Exacerbation, Progression, or Severe Exacerbation? @ -No Poses a threat to life or bodily function? How? (Chest pain, USA, DC, pneumonia, PE, COPD, DKA, ARF, appy, cholecystitis, CVA, Diverticulitis, Homicidal, Suicidal, threat to staff... and all critical care pts) @ -No Disposition Clinical Impression: Methamphetamine abuse, Wounds, multiple Disposition: HOME SELF-CARE Condition: Stable Instructions (If sedation given, give patient instructions): Methamphetamine Abuse (ED) Additional Instructions: Please return to the Emergency Department if symptoms worsen or any other concerns. Prescriptions: Sulfamethox-Tmp 800-160Mg [Bactrim Ds] 1 each PO Q12HR #20 tab Cephalexin [Keflex] 500 mg PO Q6HR #40 cap Is patient prescribed a controlled substance at d/c from ED?: No Referrals: Leigh Padilla MD [Primary Care Provider] - 1-2 days Time of Disposition: 13:03
[2024-11-08 13:26] VITALS: BP 131/79; PULSE 104; RESP 18
== END 2024-11-08 13:29 | disposition home or self-care (01) ==
LOC: EC 12:01
DX: F15.10 Other stimulant abuse, uncomplicated (principal); F17.200 Nicotine dependence, unspecified, uncomplicated
CPT/HCPCS: 99283; 96372; J3360

== ENCOUNTER 2024-11-09 20:17 | Emergency (ER) | payer OTHER ==
[2024-11-09 22:12] LABS: Basophils % (A) 1 %; Eosinophils # (A) 0.4 k/uL (0-0.7); Eosinophils % (A) 6 %; HCT 41.9 % (39.0-53.0); Lymphocytes % (A) 33 %; MCH 26.8 pg (25.0-35.0); MCHC 33.4 g/dL (31.0-37.0); MCV 80.4 fL (80.0-100.0); Mean Platelet Volume 6.9; Monocytes # (A) 0.4 k/uL (0-1.0); Monocytes % (A) 6 %; Neutrophils # (A) 3.1 k/uL (1.3-7.7); Neutrophils % (A) 52 %; Platelet Count 374 k/uL (150-450); RBC 5.21 m/uL (4.30-5.90)
[2024-11-09 22:22] LABS: ALT 18 U/L (4-49); AST 25 U/L (17-59); African American GFR (CKD) >90 (>60 ml/min/1.73 sqM); Albumin 4.1 g/dL (3.5-5.0); Alkaline Phosphatase 107 U/L (38-126); Anion Gap 13 mmol/L; Blood Urea Nitrogen 6 mg/dL (9-20); Calcium 9.4 mg/dL (8.4-10.2); Carbon Dioxide 23 mmol/L (22-30); Chloride 103 mmol/L (98-107); Glucose 97 mg/dL (74-99); Non-African American GFR(CKD) >90 (>60 ml/min/1.73 sqM); Sodium 139 mmol/L (137-145); Total Bilirubin 0.4 mg/dL (0.2-1.3); Total Protein 7.1 g/dL (6.3-8.2)
[2024-11-09] MEDS: SODIUM CHLORIDE 0.9% 500 ML 500 ML IV STA (22:23)
--- NOTE | 2024-11-09 22:26 | ED ---
General Adult HPI - General Chief complaint: Recheck/Abnormal Lab/Rx Stated complaint: abd pain Time Seen by Provider: 11/09/24 21:13 Source: patient Mode of arrival: wheelchair Limitations: no limitations - History of Present Illness Initial comments: This patient is a 29-year-old man who presents with complaint that he is very anxious and he has not been able to sleep. The patient states that he had been doing a couple days of meth but stopped 2 days ago, and was seen here. The patient states he was given a dose of Ativan and went home but not able to sleep. He returns because he is still very anxious and not able to sleep. Patient denies pain. Onset/Timin -: days(s) Severity scale (1-10): 0 Consistency: constant Improves with: none Worsens with: none Associated Symptoms: other Treatments Prior to Arrival: none - Related Data Home Medications Medication Instructions Recorded Confirmed Atomoxetine HCl [Strattera] 25 mg PO DAILY 10/02/23 10/02/23 Previous Rx's Medication Instructions Recorded ARIPiprazole [Abilify] 10 mg PO DAILY 30 Days #30 tab 10/07/23 Cephalexin [Keflex] 500 mg PO TID 2 Days #6 cap 10/07/23 Clindamycin [Cleocin] 300 mg PO TID 2 Days #12 cap 10/07/23 Doxepin [SINEquan] 25 mg PO HS 30 Days #30 cap 10/07/23 Meloxicam [Mobic] 15 mg PO DAILY 30 Days #60 tab 10/07/23 Mupirocin 2% Oint [Bactroban 2% 1 applic TOPICAL TID #1 each 10/07/23 Oint] Nicotine 21Mg/24Hr Patch [Habitrol] 1 patch TRANSDERM DAILY 14 Days 10/07/23 #14 patch buPROPion XL [Wellbutrin XL] 150 mg PO DAILY 30 Days #30 tab 10/07/23 hydrOXYzine HCL [Atarax] 50 mg PO DAILY PRN 14 Days #28 tab 10/07/23 Cephalexin [Keflex] 500 mg PO Q6HR #40 cap 11/08/24 Sulfamethox-Tmp 800-160Mg [Bactrim 1 each PO Q12HR #20 tab 11/08/24 Ds] Allergies Allergy/AdvReac Type Severity Reaction Status Date / Time No Known Allergies Allergy Verified 11/09/24 20:41 Review of Systems ROS Statement: Those systems with pertinent positive or pertinent negative responses have been documented in the HPI. ROS Other: All systems not noted in ROS Statement are negative. Constitutional: Denies: fever, weakness Eyes: Denies: vision change Respiratory: Denies: cough, dyspnea Cardiovascular: Denies: chest pain, palpitations, edema Gastrointestinal: Denies: abdominal pain, vomiting, diarrhea Genitourinary: Denies: dysuria Skin: Denies: rash Neurological: Denies: headache, weakness Psychiatric: Reports: anxiety. Denies: auditory hallucinations, visual hallucinations, homicidal thoughts, suicidal thoughts Past Medical History Past Medical History: Asthma Additional Past Medical History / Comment(s): hep c History of Any Multi-Drug Resistant Organisms: None Reported Past Surgical History: No Surgical Hx Reported Past Anesthesia/Blood Transfusion Reactions: No Reported Reaction Past Psychological History: Anxiety, Bipolar, Depression, Panic Disorder Smoking Status: Current every day smoker Past Alcohol Use History: Occasional Past Drug Use History: Heroin, Methamphetamine, Opiates - Past Family History Mother History Unknown: Yes General Exam Limitations: no limitations General appearance: alert, in no apparent distress Head exam: Present: atraumatic, normocephalic Eye exam: Present: normal appearance. Absent: scleral icterus, conjunctival injection ENT exam: Present: mucous membranes dry Neck exam: Present: normal inspection Respiratory exam: Present: normal lung sounds bilaterally. Absent: respiratory distress, wheezes, rales, rhonchi, stridor, accessory muscle use Cardiovascular Exam: Present: normal rhythm, tachycardia, normal heart sounds. Absent: systolic murmur, diastolic murmur, rubs, gallop GI/Abdominal exam: Present: soft. Absent: distended, tenderness, guarding, r ebound, rigid, mass Extremities exam: Present: normal inspection Back exam: Present: normal inspection Neurological exam: Present: alert Psychiatric exam: Present: anxious. Absent: agitated, flat affect, manic, homicidal ideation, suicidal ideation Course Vital Signs 11/09/24 11/09/24 11/09/24 20:37 21:32 22:25 Temperature 97.2 F L Pulse Rate 117 H 94 113 H Respiratory 20 Rate Blood Pressure 117/73 130/77 102/72 O2 Sat by Pulse 99 100 100 Oximetry Medical Decision Making - Lab Data Result diagrams: 11/09/24 21:53 11/09/24 21:53 Lab Results 11/09/24 11/09/24 Range/Units 21:53 21:53 WBC 6.0 (3.8-10.6) k/uL RBC 5.21 (4.30-5.90) m/uL Hgb 14.0 (13.0-17.5) gm/dL Hct 41.9 (39.0-53.0) % MCV 80.4 (80.0-100.0) fL MCH 26.8 (25.0-35.0) pg MCHC 33.4 (31.0-37.0) g/dL RDW 15.0 (11.5-15.5) % Plt Count 374 (150-450) k/uL MPV 6.9 Neutrophils % 52 % Lymphocytes % 33 % Monocytes % 6 % Eosinophils % 6 % Basophils % 1 % Neutrophils # 3.1 (1.3-7.7) k/uL Lymphocytes # 2.0 (1.0-4.8) k/uL Monocytes # 0.4 (0-1.0) k/uL Eosinophils # 0.4 (0-0.7) k/uL Basophils # 0.0 (0-0.2) k/uL Sodium 139 (137-145) mmol/L Potassium 4.0 (3.5-5.1) mmol/L Chloride 103 (98-107) mmol/L Carbon Dioxide 23 (22-30) mmol/L Anion Gap 13 mmol/L BUN 6 L (9-20) mg/dL Creatinine 0.58 L (0.66-1.25) mg/dL Est GFR (CKD-EPI)AfAm >90 (>60 ml/min/1.73 sqM) Est GFR (CKD-EPI)NonAf >90 (>60 ml/min/1.73 sqM) Glucose 97 (74-99) mg/dL Calcium 9.4 (8.4-10.2) mg/dL Total Bilirubin 0.4 (0.2-1.3) mg/dL AST 25 (17-59) U/L ALT 18 (4-49) U/L Alkaline Phosphatase 107 (38-126) U/L Total Protein 7.1 (6.3-8.2) g/dL Albumin 4.1 (3.5-5.0) g/dL Disposition Clinical Impression: Methamphetamine abuse, Insomnia Disposition: HOME SELF-CARE Condition: Good Instructions (If sedation given, give patient instructions): Methamphetamine Abuse (ED) Is patient prescribed a controlled substance at d/c from ED?: No Referrals: None,Stated [Primary Care Provider] - 1-2 days
[2024-11-09] MEDS: LORazepam 2 MG/ML INJ IV STA (22:51)
[2024-11-09 23:06] VITALS: BP 133/86; PULSE 89; RESP 16; TEMP 97.6
== END 2024-11-09 23:06 | disposition home or self-care (01) ==
LOC: EC 20:17
DX: F15.10 Other stimulant abuse, uncomplicated (principal); G47.00 Insomnia, unspecified; F17.200 Nicotine dependence, unspecified, uncomplicated
CPT/HCPCS: 36415; 80053; 85025; 99284; 96374; 96361; J2060